=== PATIENT | male | born 1945 | race Caucasian/White ===

== ENCOUNTER 2018-12-17 09:18 | Emergency (ER) | payer MEDICARE, MEDICAID ==
[~2018-12-17] VITALS: Ht 172.7 cm; Wt 69.7 kg
--- NOTE | 2018-12-17 09:34 | NUR ---
CONTACT WITH PT, 73 YR OLD MALE HERE WITH C/O "I GOT KIDNEY STONES, I'M IN PAIN, I GOT IN INFECTION, I'M CHECKING IT OUT" HAS BEEN IN PAIN FOR 3 YEARS. ALSO HAS NAUSEA. DENIES PROBLEMS WITH URINATING.
--- NOTE | 2018-12-17 10:03 | NUR ---
PT ABLE TO PROVIDE URINE SPECIMAN. URINE SENT TO LAB. PT UPDATED ON POC. NO NEEDS EXPRESSED AT THIS TIME.
[2018-12-17 10:22] LABS: BASOPHILS # (AUTO) 0.16 x10^3/uL (0-0.1); BASOPHILS % (AUTO) 2 % (0-1); EOSINOPHILS # (AUTO) 0.15 x10^3/uL (0-0.4); EOSINOPHILS % (AUTO) 2 % (1-7); LYMPHOCYTES # (AUTO) 2.48 x10^3/uL (1-3.4); LYMPHOCYTES % (AUTO) 29 % (22-44); MD NO; MEAN CORPUSCULAR HEMOGLOBIN 30.3 pg (27.5-34.5); MEAN CORPUSCULAR HGB CONC 33.6 g/dL (33.2-36.2); MEAN CORPUSCULAR VOLUME 90.3 fL (81-97); MONOCYTES # (AUTO) 0.63 x10^3/uL (0.2-0.8); MONOCYTES % (AUTO) 7 % (2-9); NEUTROPHILS # (AUTO) 5.24 x10^3/uL (1.8-6.8); NEUTROPHILS % (AUTO) 61 % (42-75); PLATELET COUNT 299 x10^3/uL (130-400); RED BLOOD COUNT 4.99 x10^6/uL (4.38-5.82); RED CELL DISTRIBUTION WIDTH 14.5 % (9.4-14.8)
[2018-12-17 10:27] LABS: ALBUMIN 3.4 g/dL (3.4-5.0); ANION GAP 5 mmol/L (5-15); CALCIUM 8.5 mg/dL (8.5-10.1); CHLORIDE 109 mmol/L (98-107); CREATININE 0.93 mg/dL (0.7-1.3)
[2018-12-17 10:28] LABS: CULTURE INDICATED? YES; MICROSCOPIC INDICATED
[2018-12-17 10:45] VITALS: BP 143/78
--- NOTE | 2018-12-17 11:22 | NUR ---
PT MOSTLY SLEEPING, AROUSES EASILY. NO NEEDS EXPRESSED AT THIS TIME. AWAITING FURTHER DISPOSITION.
[2018-12-17] MEDS ORDERED: CEFTRIAXONE 1,000 MG IM ONE (11:30)
--- NOTE | 2018-12-17 11:54 | NUR ---
PT DOZING INTERMITTENTLY, AROUSES EASILY. NO IV TO DC. REVIEWED DC INSTRUCTIONS WITH PT, UNDERSTANDING VERBALIZED. PT LEFT AMB, GAIT STEADY.
== END 2018-12-17 11:56 | disposition home or self-care (01) ==
LOC: ED 10:02
DX: N30.00 Acute cystitis without hematuria (principal); I10 Essential (primary) hypertension; I48.91 Unspecified atrial fibrillation; Z95.0 Presence of cardiac pacemaker
CPT/HCPCS: 36415; 80048; 81001; 82040; 85025; 87086; 99283

== ENCOUNTER 2019-01-09 22:01 | Emergency (ER) | payer MEDICARE, MEDICAID ==
[~2019-01-09] VITALS: Ht 172.7 cm; Wt 66.0 kg
--- NOTE | 2019-01-09 22:14 | NUR ---
PT HERE FOR CENTRAL ABD PAIN X 1 WEEK. PT HAS HX OF KIDNEY STONES BUT DENIES URINARY SYMPTOMS. PT AMBULATED TO BATHROOM TO PROVIDE UA.
[2019-01-09] MEDS ORDERED: KETOROLAC 30 MG/1 ML IM ONE (22:30)
[2019-01-09] MEDS ORDERED: ACETAMINOPHEN 500 MG TABLET PO ONE (22:30)
[2019-01-09] MEDS ORDERED: KETOROLAC 30 MG/1 ML ONE (22:38)
[2019-01-09] MEDS ORDERED: ACETAMINOPHEN 500 MG TABLET ONE (22:38)
[2019-01-09 22:51] LABS: CULTURE INDICATED? YES; MICROSCOPIC INDICATED
[2019-01-09 23:01] LABS: BASOPHILS # (AUTO) 0.07 x10^3/uL (0-0.1); BASOPHILS % (AUTO) 1 % (0-1); EOSINOPHILS # (AUTO) 0.04 x10^3/uL (0-0.4); EOSINOPHILS % (AUTO) 0 % (1-7); LYMPHOCYTES # (AUTO) 1.32 x10^3/uL (1-3.4); LYMPHOCYTES % (AUTO) 10 % (22-44); MD NO; MEAN CORPUSCULAR HEMOGLOBIN 31.1 pg (27.5-34.5); MEAN CORPUSCULAR VOLUME 91.2 fL (81-97); MEAN PLATELET VOLUME 9.6 fL (7.4-10.4); MONOCYTES # (AUTO) 0.62 x10^3/uL (0.2-0.8); MONOCYTES % (AUTO) 5 % (2-9); NEUTROPHILS # (AUTO) 10.82 x10^3/uL (1.8-6.8); NEUTROPHILS % (AUTO) 84 % (42-75); PLATELET COUNT 271 x10^3/uL (130-400); RED BLOOD COUNT 4.98 x10^6/uL (4.38-5.82); RED CELL DISTRIBUTION WIDTH 13.8 % (9.4-14.8)
[2019-01-09 23:06] LABS: ALANINE AMINOTRANSFERASE 17 U/L (12-78); ALBUMIN 3.3 g/dL (3.4-5.0); ANION GAP 5 mmol/L (5-15); CALCIUM 8.7 mg/dL (8.5-10.1); CHLORIDE 109 mmol/L (98-107); CREATININE 1.05 mg/dL (0.7-1.3)
[2019-01-09 23:09] LABS: ALKALINE PHOSPHATASE 90 U/L (45-117); BILIRUBIN,TOTAL 0.4 mg/dL (0.2-1.0); TOTAL PROTEIN 6.8 g/dL (6.4-8.2)
[2019-01-09 23:17] VITALS: BP 137/63
[2019-01-09] MEDS ORDERED: CEFDINIR 300 MG CAPSULE ONE (23:21)
--- NOTE | 2019-01-09 23:26 | NUR ---
PT SAYS PAIN IS GONE. PT MEDICATED WITH ABX. PT VERBALIZED UNDERSTANDING OF DISCHARGE AND FOLLOW UP. PT AMBULATED OUT OF ER WITH A STEADY GAIT.
[2019-01-09] MEDS ORDERED: CEFDINIR 300 MG CAPSULE PO ONE (23:30)
== END 2019-01-09 23:28 | disposition home or self-care (01) ==
LOC: ED 22:50
DX: N30.01 Acute cystitis with hematuria (principal); I10 Essential (primary) hypertension; I48.91 Unspecified atrial fibrillation; Z95.0 Presence of cardiac pacemaker
CPT/HCPCS: 36415; 80053; 81001; 83690; 85025; 87086; 96372; 99283; J1885

== ENCOUNTER 2019-02-14 13:11 | Emergency (ER) | payer MEDICARE, MEDICAID ==
[~2019-02-14] VITALS: Ht 172.7 cm; Wt 67.0 kg
[2019-02-14 13:14] VITALS: BP 174/88
== END 2019-02-14 13:34 | disposition home or self-care (01) ==
LOC: ED 13:20
DX: H66.002 Acute suppurative otitis media without spontaneous rupture of ear drum, left ear (principal); I10 Essential (primary) hypertension; I48.91 Unspecified atrial fibrillation; Z95.0 Presence of cardiac pacemaker
CPT/HCPCS: 96372; 99283

== ENCOUNTER 2019-02-18 13:38 | Emergency (ER) | payer MEDICARE, MEDICAID ==
[~2019-02-18] VITALS: Ht 172.7 cm; Wt 65.0 kg
--- NOTE | 2019-02-18 14:08 | NUR ---
FIRST CONTACT WITH PT. PT IS ALERT AND ORIENTED, BUT HAS ABNORMAL BEHAVIOR. PT ALTERNATES BETWEEN JUMPING AROUND ROOM AND THEN FALLING ASLEEP IN BED. PT IS A POOR HISTORIAN AND CANNOT PROVIDE AN ADEQUATE HX. PT DENIES DRUG AND ETOH USE. PT REFUSES TO GIVE A URINE SAMPLE, REPEATED ATTEMPTS MADE. PT ON 2 LITERS BECAUSE HIS OX SAT DROPPED TO 88 FOR A FEW SECONDS. PT OX SAT STABLE NOW, NO ACUTE DISTRESS NOTED.
[2019-02-18 14:16] LABS: BASOPHILS # (AUTO) 0.02 x10^3/uL (0-0.1); BASOPHILS % (AUTO) 0 % (0-1); EOSINOPHILS # (AUTO) 0.13 x10^3/uL (0-0.4); EOSINOPHILS % (AUTO) 2 % (1-7); LYMPHOCYTES # (AUTO) 1.73 x10^3/uL (1-3.4); LYMPHOCYTES % (AUTO) 21 % (22-44); MD NO; MEAN CORPUSCULAR HEMOGLOBIN 31.3 pg (27.5-34.5); MEAN CORPUSCULAR HGB CONC 33.2 g/dL (33.2-36.2); MEAN CORPUSCULAR VOLUME 94.3 fL (81-97); MEAN PLATELET VOLUME 9.2 fL (7.4-10.4); MONOCYTES # (AUTO) 0.55 x10^3/uL (0.2-0.8); MONOCYTES % (AUTO) 7 % (2-9); NEUTROPHILS # (AUTO) 5.91 x10^3/uL (1.8-6.8); NEUTROPHILS % (AUTO) 71 % (42-75); PLATELET COUNT 329 x10^3/uL (130-400); RED CELL DISTRIBUTION WIDTH 13.8 % (9.4-14.8)
--- NOTE | 2019-02-18 14:20 | NUR ---
URINAL AT BEDSIDE, PT INSTRUCTED TO CALL WHEN HE CAN URINATE. CALL LIGHT IN REACH.
[2019-02-18 14:25] LABS: ALANINE AMINOTRANSFERASE 17 U/L (12-78); ALBUMIN 3.7 g/dL (3.4-5.0); ANION GAP 7 mmol/L (5-15); CALCIUM 9.6 mg/dL (8.5-10.1); CHLORIDE 105 mmol/L (98-107); CREATININE 1.07 mg/dL (0.7-1.3)
[2019-02-18 14:27] LABS: ALKALINE PHOSPHATASE 109 U/L (45-117); BILIRUBIN,TOTAL 0.6 mg/dL (0.2-1.0); TOTAL PROTEIN 7.5 g/dL (6.4-8.2)
[2019-02-18 15:27] LABS: MICROSCOPIC INDICATED
[2019-02-18 15:28] LABS: CULTURE INDICATED? YES
--- NOTE | 2019-02-18 15:30 | NUR ---
PT REFUSED TO COOPERATE WITH COMPLETION OF MED REC
[2019-02-18 15:36] VITALS: BP 156/83
--- NOTE | 2019-02-18 15:42 | NUR ---
PT ALERT AND ORIENTED AND STEADY ON FEET. VSS. NO ACUTE SIGNS OF DISTRESS. DC INSTRUCTIONS EXPLAINED TO PT AND PT VERBALIZED UNDERSTANDING. PT LEFT BY HIMSELF AND STATES THAT "WE ARE FUCKING WORTHLESS".
== END 2019-02-18 15:46 | disposition home or self-care (01) ==
LOC: ED 15:40
DX: R10.84 Generalized abdominal pain (principal); H92.02 Otalgia, left ear; Z95.0 Presence of cardiac pacemaker; I48.91 Unspecified atrial fibrillation; F17.200 Nicotine dependence, unspecified, uncomplicated; I10 Essential (primary) hypertension; Z59.0 Homelessness
CPT/HCPCS: 36415; 80053; 81001; 83690; 85025; 87086; 99283

== ENCOUNTER 2019-03-25 11:32 | Emergency (ER) | payer MEDICARE, MEDICAID ==
[~2019-03-25] VITALS: Ht 172.7 cm; Wt 66.0 kg
[2019-03-25 11:49] VITALS: BP 169/91
== END 2019-03-25 12:36 | disposition home or self-care (01) ==
LOC: ED 12:28
DX: B86 Scabies (principal); I10 Essential (primary) hypertension; I48.91 Unspecified atrial fibrillation; F17.200 Nicotine dependence, unspecified, uncomplicated; Z95.0 Presence of cardiac pacemaker
CPT/HCPCS: 99283

== ENCOUNTER 2019-10-16 10:09 | Emergency (ER) | payer MEDICARE, MEDICAID ==
[~2019-10-16] VITALS: Ht 172.7 cm; Wt 67.9 kg
[2019-10-16] MEDS ORDERED: KETOROLAC 30 MG/1 ML IM ONE (11:00)
[2019-10-16] MEDS ORDERED: KETOROLAC 30 MG/1 ML ONE (11:10)
[2019-10-16 11:17] LABS: MEAN CORPUSCULAR HEMOGLOBIN 30.7 pg (27.5-34.5); MEAN PLATELET VOLUME 9.3 fL (7.4-10.4); PLATELET COUNT 281 x10^3/uL (130-400); RED BLOOD COUNT 4.79 x10^6/uL (4.38-5.82); RED CELL DISTRIBUTION WIDTH 13.3 % (9.4-14.8)
--- NOTE | 2019-10-16 11:19 | NUR ---
PT STATES HE CAME TO ER TO FIND RESULTS OF TESTS DONE DURING THIS WEEK'S ADMISSION HE LEFT AMA SO HIS MOTOR HOME WAS NOT TOWED. PT ADDITIONALLY STATES HE NEEDS AN ANTIBIOTIC BECAUSE HE HAS BLOOD IN HIS URINE. PT DECLINES CT STATING HE HAS HAD 4 OF THEM AND DOES NOT WANT ADDITIONAL RADIATION. PT MEDICATED FOR PAIN AND GIVEN A URINAL FOR A SAMPLE.
[2019-10-16 11:23] LABS: ALANINE AMINOTRANSFERASE 47 U/L (12-78); ALBUMIN 3.2 g/dL (3.4-5.0); ANION GAP 4 mmol/L (5-15); CALCIUM 9.1 mg/dL (8.5-10.1); CHLORIDE 108 mmol/L (98-107); CREATININE 0.98 mg/dL (0.7-1.3)
[2019-10-16 11:25] LABS: ALKALINE PHOSPHATASE 99 U/L (45-117); BILIRUBIN,TOTAL 0.4 mg/dL (0.2-1.0); TOTAL PROTEIN 7.2 g/dL (6.4-8.2)
[2019-10-16 11:50] LABS: BASOPHILS # (AUTO) 0.06 x10^3/uL (0-0.1); BASOPHILS % (AUTO) 1 % (0-1); EOSINOPHILS # (AUTO) 0.24 x10^3/uL (0-0.4); EOSINOPHILS % (AUTO) 3 % (1-7); LYMPHOCYTES # (AUTO) 1.63 x10^3/uL (1-3.4); LYMPHOCYTES % (AUTO) 21 % (22-44); MD SCAN; MONOCYTES # (AUTO) 0.57 x10^3/uL (0.2-0.8); MONOCYTES % (AUTO) 7 % (2-9); NEUTROPHILS # (AUTO) 5.36 x10^3/uL (1.8-6.8); NEUTROPHILS % (AUTO) 68 % (42-75)
[2019-10-16 11:54] LABS: MICROSCOPIC AUTO
[2019-10-16 11:55] LABS: CULTURE INDICATED? YES
--- NOTE | 2019-10-16 11:55 | NUR ---
OBTAINED URINE SAMPLE. PT STATES PAIN GONE SINCE MEDICATED FOR SAME
--- NOTE | 2019-10-16 12:08 | NUR ---
OFF FLOOR TO CT
[2019-10-16] MEDS ORDERED: CEFTRIAXONE 1,000 MG IM ONE (12:30)
[2019-10-16 12:53] VITALS: BP 149/77
--- NOTE | 2019-10-16 12:53 | NUR ---
RE-EVALUATING PT. TO BE DISCHARGED. PROVIDED COFFEE AND GETTING DRESSED.
[2019-10-16] MEDS ORDERED: LIDOCAINE-MPF 1%, 2ML ONE (12:55)
[2019-10-16] MEDS ORDERED: CEFTRIAXONE 1,000 MG ONE (12:56)
== END 2019-10-16 13:27 | disposition home or self-care (01) ==
LOC: ED 12:34
DX: N30.00 Acute cystitis without hematuria (principal); I10 Essential (primary) hypertension; Z95.0 Presence of cardiac pacemaker
CPT/HCPCS: 36415; 74176; 80053; 81001; 83690; 85025; 87086; 96372; 99284; J0696; J1885

== ENCOUNTER 2019-11-12 05:40 | Emergency (ER) | payer MEDICARE, MEDICAID ==
[~2019-11-12] VITALS: Ht 172.7 cm; Wt 68.1 kg
--- NOTE | 2019-11-12 05:56 | NUR ---
PT TO ED WITH C/O "06/10 KIDNEY PAIN" PT POINTS TO LOWER ABDOMEN. PT ROCKING BACK AND FORTH AND STATING "I HAVE PAIN, I NEED PAIN MEDS" PT DENIES ANY OTHER C/O AT THIS TIME.
--- NOTE | 2019-11-12 06:25 | NUR ---
PT PROVIDED URINE SAMPLE CUP AND WATER PER MD AT THIS TIME.
--- NOTE | 2019-11-12 06:48 | NUR ---
REPORT TO VERONICA DELUNA.
[2019-11-12 07:28] LABS: CULTURE INDICATED? YES; MICROSCOPIC INDICATED
[2019-11-12 08:14] VITALS: BP 138/86
--- NOTE | 2019-11-12 08:14 | NUR ---
pt refusing ct, ermd aware
--- NOTE | 2019-11-12 10:20 | NUR ---
PT LEFT AMA, REFUSED TO SIGN PAPERWORK
== END 2019-11-12 10:22 | disposition left against medical advice (07) ==
LOC: ED 06:19
DX: N30.01 Acute cystitis with hematuria (principal); E86.0 Dehydration; I10 Essential (primary) hypertension; I48.91 Unspecified atrial fibrillation; F17.200 Nicotine dependence, unspecified, uncomplicated; Z95.0 Presence of cardiac pacemaker
CPT/HCPCS: 81001; 87086; 99283

== ENCOUNTER 2019-11-24 14:22 | Emergency (ER) | payer MEDICARE, MEDICAID ==
[~2019-11-24] VITALS: Ht 172.7 cm; Wt 72.0 kg
[2019-11-24 14:47] VITALS: BP 162/93
--- NOTE | 2019-11-24 15:02 | NUR ---
PT IRRITABLE WITH STAFF, STATES "HOW LONG IS THIS GOING TO TAKE" PT REFUSING TO CHANGE TO HOSPITAL GOWN AT THIS TIME, PT STATES HE IS HERE FOR PAIN CONTROL. ER PROVIDER MADE AWARE
== END 2019-11-24 15:24 | disposition left against medical advice (07) ==
LOC: ED 14:52
DX: R10.30 Lower abdominal pain, unspecified (principal); R06.02 Shortness of breath; Z53.21 Procedure and treatment not carried out due to patient leaving prior to being seen by health care provider

== ENCOUNTER 2020-01-29 03:29 | Inpatient (IN) | payer MEDICARE, MEDICAID ==
[~2020-01-29] VITALS: Ht 172.7 cm; Wt 70.5 kg
--- NOTE | 2020-01-29 04:29 | NUR ---
Report received from VERONICA Mendez. This RN to assume care. Awaiting lab results and urine sample from patient.
[2020-01-29 04:32] LABS: ALBUMIN 3.1 g/dL (3.4-5.0); ANION GAP 7 mmol/L (5-15); CALCIUM 9.1 mg/dL (8.5-10.1); CHLORIDE 107 mmol/L (98-107)
[2020-01-29 04:33] LABS: BASOPHILS # (AUTO) 0.05 x10^3/uL (0-0.1); BASOPHILS % (AUTO) 1 % (0-1); EOSINOPHILS % (AUTO) 1 % (1-7); LYMPHOCYTES # (AUTO) 1.28 x10^3/uL (1-3.4); LYMPHOCYTES % (AUTO) 13 % (22-44); MD NO; MEAN CORPUSCULAR HEMOGLOBIN 30.4 pg (27.5-34.5); MEAN CORPUSCULAR HGB CONC 32.6 g/dL (33.2-36.2); MEAN PLATELET VOLUME 10.4 fL (7.4-10.4); MONOCYTES # (AUTO) 0.72 x10^3/uL (0.2-0.8); MONOCYTES % (AUTO) 7 % (2-9); NEUTROPHILS # (AUTO) 7.68 x10^3/uL (1.8-6.8); NEUTROPHILS % (AUTO) 78 % (42-75); PLATELET COUNT 258 x10^3/uL (130-400); RED BLOOD COUNT 4.88 x10^6/uL (4.38-5.82); RED CELL DISTRIBUTION WIDTH 14.8 % (9.4-14.8)
[2020-01-29 04:38] LABS: ALANINE AMINOTRANSFERASE 77 U/L (12-78); ALKALINE PHOSPHATASE 119 U/L (45-117); BILIRUBIN,TOTAL 1.2 mg/dL (0.2-1.0); CREATININE 1.29 mg/dL (0.7-1.3); TOTAL PROTEIN 6.7 g/dL (6.4-8.2); TROPONIN I 0.039 ng/mL (0.000-0.045)
[2020-01-29] MEDS ORDERED: FUROSEMIDE 40 MG/4 ML IV ONE (05:00)
[2020-01-29] MEDS ORDERED: ACETAMINOPHEN 325 MG TABLET PO ONE (05:00)
[2020-01-29] MEDS ORDERED: MORPHINE SULFATE 4 MG/ML, 1ML ONE (05:39)
[2020-01-29] MEDS ORDERED: ACETAMINOPHEN 325 MG TABLET ONE (05:39)
[2020-01-29 05:49] LABS: MICROSCOPIC INDICATED
--- NOTE | 2020-01-29 05:49 | NUR ---
Patient c/o severe abd pain, requesting pain meds. Medicated patient per mar.
[2020-01-29 05:58] LABS: AMPHETAMINE SCREEN, URINE Positive (Negative); BARBITURATE SCREEN, URINE Negative (Negative); BENZODIAZEPINE SCREEN, URINE Negative (Negative); CANNABINOID SCREEN, URINE Positive (Negative); COCAINE SCREEN, URINE Negative (Negative); METHADONE SCREEN, URINE Negative (Negative); OPIATE SCREEN, URINE Negative (Negative)
[2020-01-29] MEDS ORDERED: MORPHINE SULFATE 4 MG/ML, 1ML IVPush PRN (06:00)
[2020-01-29] MEDS ORDERED: FUROSEMIDE 40 MG/4 ML ONE (06:16)
--- NOTE | 2020-01-29 06:52 | NUR ---
report received from devorah ventura.
--- NOTE | 2020-01-29 07:01 | NUR ---
pt resting in [facility]. pt's aox4. resps even and unlabored. all monitors in place. call light within reach.
--- NOTE | 2020-01-29 07:17 | NUR ---
hospitalist at bedside at this time.
--- NOTE | 2020-01-29 07:23 | NUR ---
this rn called for report but no answer.
[2020-01-29] MEDS ORDERED: ONDANSETRON 2MG/ML, 2ML IVPush PRN (07:30)
[2020-01-29] MEDS ORDERED: ONDANSETRON ODT 4 MG PO PRN (07:30)
[2020-01-29] MEDS ORDERED: hydrALAzine 20 MG/ML, 1ML IVPush PRN (07:30)
--- NOTE | 2020-01-29 07:44 | NUR ---
REPORT GIVEN TO ROHAN MARTIN. ALL QUESTIONS ANSWERED.
[2020-01-29 08:08] VITALS: BP 154/103
[2020-01-29] MEDS ORDERED: FUROSEMIDE 40 MG/4 ML IV SCH (08:30)
[2020-01-29] MEDS ORDERED: NICOTINE 21 MG/24 HR PATCH.TD24 TD SCH (08:30)
[2020-01-29] MEDS ORDERED: ENOXAPARIN 30 MG/0.3 ML SQ SCH (09:00)
[2020-01-29] MEDS ORDERED: ACETAMINOPHEN 325 MG TABLET PO PRN (09:00)
[2020-01-29] MEDS ORDERED: LIDOCAINE GEL 2%, 5ML TP ONE (10:30)
[2020-01-29] MEDS ORDERED: LIDOCAINE GEL 2%, 5ML TP PRN (10:30)
== END 2020-01-29 11:18 | disposition left against medical advice (07) | DRG 291 ==
LOC: ED 04:10 → EDIP 05:06 → 5SO 08:02
PROVIDERS: ADMIT Family Medicine; ATTEND Family Medicine
DX: I11.0 Hypertensive heart disease with heart failure (principal); J96.01 Acute respiratory failure with hypoxia; I48.91 Unspecified atrial fibrillation; F17.210 Nicotine dependence, cigarettes, uncomplicated; I50.23 Acute on chronic systolic (congestive) heart failure; I25.5 Ischemic cardiomyopathy; G89.29 Other chronic pain; M54.9 Dorsalgia, unspecified; N20.0 Calculus of kidney; K57.90 Diverticulosis of intestine, part unspecified, without perforation or abscess without bleeding; F15.10 Other stimulant abuse, uncomplicated; I45.9 Conduction disorder, unspecified; Z53.29 Procedure and treatment not carried out because of patient's decision for other reasons; Z59.0 Homelessness; Z91.19 Patient's noncompliance with other medical treatment and regimen; Z95.0 Presence of cardiac pacemaker; Z63.8 Other specified problems related to primary support group; Z87.440 Personal history of urinary (tract) infections
CPT/HCPCS: 36415; 71045; 76705; 76770; 80053; 80307; 81001; 83880; 84484; 85025; 87086; 93005; 96374; 96375; G0378; J1940; J2270

== ENCOUNTER 2020-03-04 04:39 | Emergency (ER) | payer MEDICARE, MEDICAID ==
[~2020-03-04] VITALS: Ht 172.7 cm; Wt 61.9 kg
[~2020-03-04 04:39] MED LIST: CARV3.122 PO; FINA5TAB4 PO; TAMS-11 PO
--- NOTE | 2020-03-04 04:58 | NUR ---
THIS IS A 74Y M THAT WAS RECENTLY D/C FROM HOSPITAL. PT HAD A RASMUSSEN IN PLACE UNTIL YESTERDAY AND HAS NOT BEEN ABLE TO VOID SINCE. PT DENIES FEVER CHILLS COUGH SOB ONLY COMPLAINT IS THAT HE IS UNABLE TO PEE. BLADDER SCAN COMPLETE READ >999ML. ERP TO BE UPDATED.
--- NOTE | 2020-03-04 05:01 | NUR ---
ERP AT BEDSIDE
[2020-03-04] MEDS ORDERED: PHENAZOPYRIDINE 200 MG TABLET ONE (05:28)
--- NOTE | 2020-03-04 05:29 | NUR ---
PT MEDICATED PER MAR
[2020-03-04] MEDS ORDERED: PHENAZOPYRIDINE 200 MG TABLET PO ONE (05:30)
--- NOTE | 2020-03-04 05:32 | NUR ---
PT ROCKING ON GURNEY ON HANDS AND KNEES SMACKING REAR END AND HUMMING. PT STS HE IS IN A LOT OF PAIN AND "WILL SHIT MY PANTS SOON" PT DIRECTED TO RESTROOM, AMB WITH STEADY GAIT NO ASSIST
[2020-03-04 05:34] LABS: MICROSCOPIC AUTO
[2020-03-04 05:40] LABS: ANION GAP 3 mmol/L (5-15); CALCIUM 9.7 mg/dL (8.5-10.1); CHLORIDE 105 mmol/L (98-107); CREATININE 1.44 mg/dL (0.7-1.3)
--- NOTE | 2020-03-04 06:02 | NUR ---
PT PROVIDED WITH LEG BAG PER
[2020-03-04 06:18] VITALS: BP 126/84
== END 2020-03-04 06:30 | disposition home or self-care (01) ==
LOC: ED 05:43
DX: N40.1 Benign prostatic hyperplasia with lower urinary tract symptoms (principal); R33.8 Other retention of urine; I48.91 Unspecified atrial fibrillation
CPT/HCPCS: 36415; 51702; 80048; 81001; 87086; 99284

== ENCOUNTER 2020-03-06 15:45 | Emergency (ER) | payer MEDICARE, MEDICAID ==
[~2020-03-06] VITALS: Ht 172.7 cm; Wt 63.7 kg
[2020-03-06 16:02] VITALS: BP 137/81
--- NOTE | 2020-03-06 17:22 | NUR ---
No answer from lobby.
--- NOTE | 2020-03-06 18:01 | NUR ---
No answer from lobby.
--- NOTE | 2020-03-06 18:13 | NUR ---
No answer from lobby.
== END 2020-03-06 18:15 ==
LOC: ED 18:09
DX: T83.84XA Pain due to genitourinary prosthetic devices, implants and grafts, initial encounter (principal); Z53.21 Procedure and treatment not carried out due to patient leaving prior to being seen by health care provider

== ENCOUNTER 2020-03-13 21:20 | Emergency (ER) | payer MEDICARE, MEDICAID ==
[~2020-03-13] VITALS: Ht 172.7 cm; Wt 66.5 kg
--- NOTE | 2020-03-13 22:07 | NUR ---
RASMUSSEN CATH REMOVED PER ORDER. PT TOLERATED WELL.
[2020-03-13 22:19] LABS: BASOPHILS # (AUTO) 0.22 x10^3/uL (0-0.1); BASOPHILS % (AUTO) 2 % (0-1); EOSINOPHILS # (AUTO) 0.23 x10^3/uL (0-0.4); EOSINOPHILS % (AUTO) 2 % (1-7); LYMPHOCYTES # (AUTO) 2.35 x10^3/uL (1-3.4); LYMPHOCYTES % (AUTO) 23 % (22-44); MD NO; MEAN CORPUSCULAR HGB CONC 33.2 g/dL (33.2-36.2); MEAN CORPUSCULAR VOLUME 90.4 fL (81-97); MEAN PLATELET VOLUME 9.2 fL (7.4-10.4); MONOCYTES # (AUTO) 0.65 x10^3/uL (0.2-0.8); MONOCYTES % (AUTO) 6 % (2-9); NEUTROPHILS % (AUTO) 66 % (42-75); PLATELET COUNT 303 x10^3/uL (130-400); RED BLOOD COUNT 4.57 x10^6/uL (4.38-5.82); RED CELL DISTRIBUTION WIDTH 14.6 % (9.4-14.8)
[2020-03-13 22:27] LABS: ALANINE AMINOTRANSFERASE 23 U/L (12-78); ANION GAP 5 mmol/L (5-15); CHLORIDE 108 mmol/L (98-107); CREATININE 0.98 mg/dL (0.7-1.3)
[2020-03-13 22:29] LABS: ALKALINE PHOSPHATASE 95 U/L (45-117); BILIRUBIN,TOTAL 0.4 mg/dL (0.2-1.0)
--- NOTE | 2020-03-13 22:38 | NUR ---
PT UNABLE TO VOID YET, PROVIDED MORE PO FLUIDS.
--- NOTE | 2020-03-13 23:08 | NUR ---
ENCOURAGED PT TO VOID BY STANDING AND TURNING ON FAUCET.
--- NOTE | 2020-03-14 00:05 | NUR ---
BLADDER SCAN 218ML. ENCOURAGED PT TO CONTINUE DRINKING WATER/FLUIDS TO VOID.
[2020-03-14] MEDS ORDERED: TAMSULOSIN 0.4 MG CAP.ER.24H ONE (00:08)
[2020-03-14] MEDS ORDERED: TAMSULOSIN 0.4 MG CAP.ER.24H PO ONE (00:30)
--- NOTE | 2020-03-14 01:41 | NUR ---
PT IN RESTROOM TRYING TO VOID.
--- NOTE | 2020-03-14 02:23 | NUR ---
BLADDER SCAN >600ML. PER ERP PLACE RASMUSSEN CATH.
--- NOTE | 2020-03-14 02:48 | NUR ---
RASMUSSEN CATH PLACED PER ORDER WITHOUT DIFFICULTY, PT TOLERATED WELL.
[2020-03-14 03:09] LABS: MICROSCOPIC INDICATED
[2020-03-14 03:14] VITALS: BP 141/90
[2020-03-14] MEDS ORDERED: CEFDINIR 300 MG CAPSULE PO ONE (03:30)
[2020-03-14] MEDS ORDERED: CEFDINIR 300 MG CAPSULE ONE (03:48)
== END 2020-03-14 04:12 | disposition home or self-care (01) ==
LOC: ED 21:55
DX: N30.00 Acute cystitis without hematuria (principal); I48.0 Paroxysmal atrial fibrillation; R33.8 Other retention of urine; I11.0 Hypertensive heart disease with heart failure; I50.9 Heart failure, unspecified; Z87.891 Personal history of nicotine dependence; Z95.0 Presence of cardiac pacemaker
CPT/HCPCS: 36415; 80053; 81001; 83690; 85025; 87077; 87086; 99283

== ENCOUNTER 2020-03-21 04:51 | Emergency (ER) | payer MEDICARE, MEDICAID ==
[~2020-03-21] VITALS: Ht 172.7 cm; Wt 67.6 kg
[2020-03-21 04:54] VITALS: BP 150/99
--- NOTE | 2020-03-21 04:59 | NUR ---
tech completing ekg
--- NOTE | 2020-03-21 05:15 | NUR ---
Pt arrived w/ previously placed indwelling urinary catheter.
[2020-03-21 05:58] LABS: BASOPHILS # (AUTO) 0.09 x10^3/uL (0-0.1); BASOPHILS % (AUTO) 1 % (0-1); EOSINOPHILS # (AUTO) 0.19 x10^3/uL (0-0.4); EOSINOPHILS % (AUTO) 2 % (1-7); LYMPHOCYTES # (AUTO) 1.91 x10^3/uL (1-3.4); LYMPHOCYTES % (AUTO) 21 % (22-44); MD NO; MEAN CORPUSCULAR HEMOGLOBIN 30.1 pg (27.5-34.5); MEAN CORPUSCULAR HGB CONC 33.2 g/dL (33.2-36.2); MEAN CORPUSCULAR VOLUME 90.8 fL (81-97); MEAN PLATELET VOLUME 9.1 fL (7.4-10.4); MONOCYTES # (AUTO) 0.57 x10^3/uL (0.2-0.8); MONOCYTES % (AUTO) 6 % (2-9); NEUTROPHILS # (AUTO) 6.31 x10^3/uL (1.8-6.8); NEUTROPHILS % (AUTO) 70 % (42-75); PLATELET COUNT 288 x10^3/uL (130-400); RED BLOOD COUNT 4.65 x10^6/uL (4.38-5.82); RED CELL DISTRIBUTION WIDTH 14.6 % (9.4-14.8)
[2020-03-21 06:01] LABS: ALANINE AMINOTRANSFERASE 26 U/L (12-78); ALBUMIN 3.1 g/dL (3.4-5.0); ANION GAP 5 mmol/L (5-15); CALCIUM 8.8 mg/dL (8.5-10.1); CHLORIDE 111 mmol/L (98-107)
[2020-03-21 06:06] LABS: ALKALINE PHOSPHATASE 93 U/L (45-117); BILIRUBIN,TOTAL 0.6 mg/dL (0.2-1.0); CREATININE 0.96 mg/dL (0.7-1.3); TOTAL PROTEIN 6.9 g/dL (6.4-8.2); TROPONIN I < 0.015 ng/mL (0.000-0.045)
--- NOTE | 2020-03-21 06:16 | NUR ---
Pt was observed to be standing in room holding tv remote and changing channels.
[2020-03-21] MEDS ORDERED: FUROSEMIDE 40 MG TABLET PO ONE (06:30)
== END 2020-03-21 06:51 | disposition home or self-care (01) ==
LOC: ED 06:31
DX: I11.0 Hypertensive heart disease with heart failure (principal); I50.21 Acute systolic (congestive) heart failure; R91.8 Other nonspecific abnormal finding of lung field; R94.31 Abnormal electrocardiogram [ECG] [EKG]; M79.89 Other specified soft tissue disorders; I48.91 Unspecified atrial fibrillation; F17.210 Nicotine dependence, cigarettes, uncomplicated; Z95.0 Presence of cardiac pacemaker
CPT/HCPCS: 36415; 71045; 80053; 83880; 84484; 85025; 93005; 99285

== ENCOUNTER 2020-03-29 00:58 | Emergency (ER) | payer MEDICARE, MEDICAID ==
[~2020-03-29] VITALS: Ht 172.7 cm; Wt 67.0 kg
[2020-03-29 01:49] LABS: BASOPHILS # (AUTO) 0.06 x10^3/uL (0-0.1); BASOPHILS % (AUTO) 1 % (0-1); EOSINOPHILS # (AUTO) 0.22 x10^3/uL (0-0.4); EOSINOPHILS % (AUTO) 2 % (1-7); LYMPHOCYTES # (AUTO) 2.25 x10^3/uL (1-3.4); LYMPHOCYTES % (AUTO) 25 % (22-44); MD NO; MEAN CORPUSCULAR HEMOGLOBIN 29.9 pg (27.5-34.5); MEAN CORPUSCULAR VOLUME 90.8 fL (81-97); MONOCYTES # (AUTO) 0.67 x10^3/uL (0.2-0.8); MONOCYTES % (AUTO) 7 % (2-9); NEUTROPHILS # (AUTO) 5.97 x10^3/uL (1.8-6.8); NEUTROPHILS % (AUTO) 65 % (42-75); PLATELET COUNT 267 x10^3/uL (130-400); RED BLOOD COUNT 4.67 x10^6/uL (4.38-5.82); RED CELL DISTRIBUTION WIDTH 14.6 % (9.4-14.8)
[2020-03-29 02:00] LABS: ALANINE AMINOTRANSFERASE 29 U/L (12-78); ANION GAP 5 mmol/L (5-15); CALCIUM 7.4 mg/dL (8.5-10.1); CHLORIDE 109 mmol/L (98-107); CREATININE 1.07 mg/dL (0.7-1.3)
[2020-03-29 02:04] LABS: ALKALINE PHOSPHATASE 91 U/L (45-117); BILIRUBIN,TOTAL 0.6 mg/dL (0.2-1.0); TOTAL PROTEIN 7.1 g/dL (6.4-8.2); TROPONIN I < 0.015 ng/mL (0.000-0.045)
--- NOTE | 2020-03-29 02:23 | NUR ---
BREAK RN: PT RESTING ON [place]. NO DISTRESS NOTED. ALL VITALS STABLE. AWAITING LABS AT THIS TIME
[2020-03-29 02:24] VITALS: BP 138/78
[2020-03-29] MEDS ORDERED: FUROSEMIDE 40 MG TABLET PO ONE (02:30)
[2020-03-29] MEDS ORDERED: FUROSEMIDE 40 MG TABLET ONE (02:36)
== END 2020-03-29 02:55 | disposition home or self-care (01) ==
LOC: ED 02:54
DX: I50.22 Chronic systolic (congestive) heart failure (principal); I11.0 Hypertensive heart disease with heart failure; M79.89 Other specified soft tissue disorders; R05 Cough; R06.02 Shortness of breath; I48.91 Unspecified atrial fibrillation; I49.3 Ventricular premature depolarization; Z95.0 Presence of cardiac pacemaker; Z72.9 Problem related to lifestyle, unspecified
CPT/HCPCS: 36415; 80053; 83880; 84484; 85025; 93005; 99284

== ENCOUNTER 2020-04-21 21:13 | Emergency (ER) | payer MEDICARE, MEDICAID ==
[~2020-04-21] VITALS: Ht 172.7 cm; Wt 61.5 kg
--- NOTE | 2020-04-21 22:40 | NUR ---
Old kramer removed, new kramer placed. Not enough UO for UA. Bladder scan 0ml.
--- NOTE | 2020-04-21 22:46 | NUR ---
Pt provided with PO fluids.
[2020-04-21 23:39] VITALS: BP 131/68
[2020-04-22 00:01] LABS: MICROSCOPIC INDICATED
--- NOTE | 2020-04-22 00:01 | NUR ---
REport given to VERONICA Mendez
== END 2020-04-22 01:29 | disposition home or self-care (01) ==
LOC: ED 04-22 00:26
DX: T83.098A Other mechanical complication of other urinary catheter, initial encounter (principal); I11.0 Hypertensive heart disease with heart failure; I50.9 Heart failure, unspecified; I48.91 Unspecified atrial fibrillation; Z95.0 Presence of cardiac pacemaker
CPT/HCPCS: 51702; 81001; 87086; 87106; 99284

== ENCOUNTER 2020-05-03 13:27 | Emergency (ER) | payer MEDICARE, MEDICAID ==
[~2020-05-03] VITALS: Ht 177.8 cm; Wt 62.2 kg
[2020-05-03 13:56] VITALS: BP 149/91
--- NOTE | 2020-05-03 14:50 | NUR ---
PT has c/o dry folley bag and bladder pain and distention. pt folley flushed with 900ml urine return into folley bag with in 30 min of flushing
[2020-05-03 15:12] LABS: MICROSCOPIC INDICATED
--- NOTE | 2020-05-03 16:06 | NUR ---
TASK RN: NEW LEG BAG ATTACHED TO RASMUSSEN. PT GAVE RTN DEMO ON USE Patient/Caregiver given discharge instructions and they have confirmed that they understand the instructions. Patient ambulatory with steady gait.
== END 2020-05-03 16:07 | disposition home or self-care (01) ==
LOC: ED 14:06
DX: N40.1 Benign prostatic hyperplasia with lower urinary tract symptoms (principal); R33.8 Other retention of urine; N30.00 Acute cystitis without hematuria; F15.222 Other stimulant dependence with intoxication with perceptual disturbance; I48.91 Unspecified atrial fibrillation; I11.0 Hypertensive heart disease with heart failure; I50.9 Heart failure, unspecified
CPT/HCPCS: 51700; 81001; 87086; 87106; 99284

== ENCOUNTER 2020-05-04 13:14 | Emergency (ER) | payer MEDICARE, MEDICAID ==
[~2020-05-04] VITALS: Ht 172.7 cm; Wt 61.6 kg
[2020-05-04 13:18] VITALS: BP 138/88
[2020-05-04] MEDS ORDERED: PHENAZOPYRIDINE 200 MG TABLET ONE (13:50)
--- NOTE | 2020-05-04 13:54 | NUR ---
bladder scan of 25ml medicated per emar for bladder cramping
[2020-05-04] MEDS ORDERED: PHENAZOPYRIDINE 200 MG TABLET PO ONE (14:00)
--- NOTE | 2020-05-04 14:25 | NUR ---
RASMUSSEN CLEANED WITH DESIGNATED WIPES. NEW STAT LOCK APPLIED IN CORRECT MANNER REVIEWED HOW TO SWITCH BETWEEN LEG BAG ANF URIMETER ([id number] HIM WITH NEW SUPPLIES) ALSO REVIEWD MEDICATION PLAN AND IMPORTANCE OF UROLOGY F/U
[2020-05-04] MEDS ORDERED: ONDANSETRON ODT 4 MG ONE (14:35)
[2020-05-04] MEDS ORDERED: ONDANSETRON ODT 4 MG PO ONE (15:00)
== END 2020-05-04 14:42 | disposition home or self-care (01) ==
LOC: ED 13:46
DX: N30.00 Acute cystitis without hematuria (principal); R33.9 Retention of urine, unspecified; I10 Essential (primary) hypertension; I25.2 Old myocardial infarction; I11.0 Hypertensive heart disease with heart failure; I50.9 Heart failure, unspecified; F17.200 Nicotine dependence, unspecified, uncomplicated; Z95.0 Presence of cardiac pacemaker
CPT/HCPCS: 99284; Q0162

== ENCOUNTER 2020-05-14 21:08 | Emergency (ER) | payer MEDICARE, MEDICAID ==
[~2020-05-14] VITALS: Ht 172.7 cm; Wt 61.4 kg
[2020-05-14 21:17] VITALS: BP 114/68
== END 2020-05-14 22:07 | disposition home or self-care (01) ==
LOC: ED 21:20
DX: Z46.6 Encounter for fitting and adjustment of urinary device (principal); F17.210 Nicotine dependence, cigarettes, uncomplicated; Z72.9 Problem related to lifestyle, unspecified; I11.0 Hypertensive heart disease with heart failure; I50.9 Heart failure, unspecified; I48.91 Unspecified atrial fibrillation; Z95.0 Presence of cardiac pacemaker
CPT/HCPCS: 99281; 99406

== ENCOUNTER 2020-05-17 17:58 | Emergency (ER) | payer MEDICARE, MEDICAID ==
[~2020-05-17] VITALS: Ht 170.2 cm; Wt 70.0 kg
--- NOTE | 2020-05-17 18:19 | NUR ---
PER PT, CURRENT RASMUSSEN CATHETER HAS BEEN IN PLACE FOR APPROX 3 MONTHS. PT HAS NOT FOLLOWED UP WITH UROLOGY, CITES SEVERAL PROBLEMS WITH GETTING AND KEEPING APPT. PT REPORTS OF URINARY RETENTION WITH CATHETER NOT DRAINING SINCE YESTERDAY. OLD CATHETER REMOVED, NOTED YELLOW SEDIMENT COATING CATHETER AND TIP. NEW RASMUSSEN PLACED WITH IMMEDIATE 400CC DARK YELLOW URINE OUTPUT. PT STATES ABD PAIN RELIEVED. LAB IN TO DRAW. CALL LIGHT WITHIN REACH.
[2020-05-17 18:32] LABS: BASOPHILS # (AUTO) 0.13 x10^3/uL (0-0.1); BASOPHILS % (AUTO) 2 % (0-1); EOSINOPHILS # (AUTO) 0.14 x10^3/uL (0-0.4); EOSINOPHILS % (AUTO) 2 % (1-7); LYMPHOCYTES # (AUTO) 1.21 x10^3/uL (1-3.4); LYMPHOCYTES % (AUTO) 16 % (22-44); MD NO; MEAN CORPUSCULAR HEMOGLOBIN 30.3 pg (27.5-34.5); MEAN CORPUSCULAR HGB CONC 33.2 g/dL (33.2-36.2); MEAN CORPUSCULAR VOLUME 91.4 fL (81-97); MEAN PLATELET VOLUME 8.9 fL (7.4-10.4); MONOCYTES % (AUTO) 3 % (2-9); NEUTROPHILS # (AUTO) 5.97 x10^3/uL (1.8-6.8); NEUTROPHILS % (AUTO) 78 % (42-75); PLATELET COUNT 331 x10^3/uL (130-400); RED BLOOD COUNT 4.71 x10^6/uL (4.38-5.82); RED CELL DISTRIBUTION WIDTH 14.4 % (9.4-14.8)
[2020-05-17 18:37] LABS: ALBUMIN 3.3 g/dL (3.4-5.0); ANION GAP 4 mmol/L (5-15); CALCIUM 9.4 mg/dL (8.5-10.1); CHLORIDE 109 mmol/L (98-107)
--- NOTE | 2020-05-17 19:40 | NUR ---
1100 CC IN RASMUSSEN BAG. PT STATES PAIN IS GONE. ALL RESULTS BACK, PT FOR RECHECK.
--- NOTE | 2020-05-17 19:49 | NUR ---
REPORT TO ASHOK MARTIN, TRANSFER OF CARE AT THIS TIME.
--- NOTE | 2020-05-17 19:55 | NUR ---
REPORT FROM JAZMIN MARTIN. PT TO BE ER D/C.
[2020-05-17 20:14] VITALS: BP 130/72
--- NOTE | 2020-05-17 20:25 | NUR ---
PATIENT GIVEN LEG BAG X 2 TO IMPROVE PATIENT OUTCOMES AT HOME. PATIENT VERBALIZED UNDERSTANDING OF SELF CARE AND FOLLOW UP CARE WITH UROLOGY. PATIENT DENIES ANY COMPLICATIONS AT THIS TIME, DENIES ANY QUESTIONS REGARDING HIS CARE. PATIENT AMBULATORY WITH FRIEND TO DISCHARGE DESK WITHOUT COMPLICATIONS.
== END 2020-05-17 20:27 | disposition home or self-care (01) ==
LOC: ED 19:41
DX: R33.9 Retention of urine, unspecified (principal); R31.9 Hematuria, unspecified
CPT/HCPCS: 36415; 51702; 76770; 80048; 82040; 85025; 99284

== ENCOUNTER 2020-05-24 11:42 | Emergency (ER) | payer MEDICARE, MEDICAID ==
[~2020-05-24] VITALS: Ht 172.7 cm; Wt 61.9 kg
[2020-05-24] MEDS ORDERED: LIDOCAINE 2%,20 ML JEL.PF.APP MM ONE (12:30)
--- NOTE | 2020-05-24 13:09 | NUR ---
Old kramer removed, not able to urinate despite urge
--- NOTE | 2020-05-24 13:38 | NUR ---
Pts kramer removed, replaced with new kramer. Good urine output, bergundy in color, UA sent. Pt states relief from pain.
[2020-05-24 13:50] LABS: MICROSCOPIC INDICATED
[2020-05-24 14:03] VITALS: BP 144/77
--- NOTE | 2020-05-24 14:04 | NUR ---
ERP at bedside, to be DC'd
== END 2020-05-24 14:26 | disposition home or self-care (01) ==
LOC: ED 13:40
DX: N30.00 Acute cystitis without hematuria (principal); I11.0 Hypertensive heart disease with heart failure; I50.9 Heart failure, unspecified; I48.91 Unspecified atrial fibrillation; Z95.0 Presence of cardiac pacemaker
CPT/HCPCS: 51702; 81001; 87086; 87106; 99284

== ENCOUNTER 2020-08-25 00:04 | Emergency (ER) | payer MEDICARE, MEDICAID ==
[~2020-08-25] VITALS: Ht 172.7 cm; Wt 64.0 kg
[2020-08-25 01:09] VITALS: BP 127/75
== END 2020-08-25 01:12 | disposition home or self-care (01) ==
LOC: ED 00:43
DX: T83.038A Leakage of other urinary catheter, initial encounter (principal); R33.9 Retention of urine, unspecified; I11.0 Hypertensive heart disease with heart failure; I50.9 Heart failure, unspecified; I48.91 Unspecified atrial fibrillation; Z95.0 Presence of cardiac pacemaker
CPT/HCPCS: 51702; 99284

== ENCOUNTER 2020-09-23 07:33 | Inpatient (IN) | payer MEDICARE, MEDICAID ==
[~2020-09-23] VITALS: Ht 172.7 cm; Wt 65.4 kg
[2020-09-23 08:25] LABS: BASOPHILS % (AUTO) 1 % (0-1); EOSINOPHILS % (AUTO) 1 % (1-7); LYMPHOCYTES % (AUTO) 13 % (22-44); MEAN CORPUSCULAR HEMOGLOBIN 29.7 pg (27.5-34.5); MEAN CORPUSCULAR HGB CONC 33.7 g/dL (33.2-36.2); MEAN PLATELET VOLUME 8.3 fL (7.4-10.4); MONOCYTES % (AUTO) 7 % (2-9); NEUTROPHILS % (AUTO) 79 % (42-75); PLATELET COUNT 344 x10^3/uL (130-400); RED BLOOD COUNT 4.68 x10^6/uL (4.38-5.82); RED CELL DISTRIBUTION WIDTH 15.2 % (9.4-14.8)
[2020-09-23 08:29] LABS: MD NO
[2020-09-23 08:33] LABS: ALBUMIN 3.2 g/dL (3.4-5.0); ANION GAP 7 mmol/L (5-15); CALCIUM 8.9 mg/dL (8.5-10.1); CHLORIDE 108 mmol/L (98-107); CREATININE 1.07 mg/dL (0.7-1.3)
[2020-09-23 08:44] LABS: MICROSCOPIC AUTO
[2020-09-23] MEDS ORDERED: CEFTRIAXONE 1,000 MG IM ONE (09:30)
[2020-09-23] MEDS ORDERED: LIDOCAINE-MPF 1%, 2ML ONE (09:58)
[2020-09-23] MEDS ORDERED: CEFTRIAXONE 1,000 MG ONE (09:58)
--- NOTE | 2020-09-23 10:10 | NUR ---
PT BACK FROM CT, MEDICATED PER OCT. PT MAKING INAPPROPRIATE COMMENTS, "I DONT WANT YOU TO INJECT WITH ME WITH THAT VIRUS THATS GOING AROUND" PT EDUCATED THIS RN IS NOT INJECTING HIM WITH A PANDEMIC VIRUS AND WILL BE ADMINISTRATING AN ANTIBIOTIC PREVIOUSLY EXPLAINED. VSS, NO OTHER NEEDS
--- NOTE | 2020-09-23 12:40 | NUR ---
REPORT CALLED TO RECEIVING RN, AWAITING TRANSPORT
[2020-09-23 13:25] VITALS: BP 155/92
[2020-09-23 13:51] VITALS: BP 139/78
[2020-09-23 14:29] LABS: AMPHETAMINE SCREEN, URINE Positive (Negative); BARBITURATE SCREEN, URINE Negative (Negative); BENZODIAZEPINE SCREEN, URINE Negative (Negative); CANNABINOID SCREEN, URINE Positive (Negative); COCAINE SCREEN, URINE Negative (Negative); METHADONE SCREEN, URINE Negative (Negative); OPIATE SCREEN, URINE Negative (Negative)
[2020-09-23] MEDS ORDERED: HYDROmorphone 1 MG/ML, 1ML INJ IVPush PRN (14:30)
[2020-09-23] MEDS ORDERED: HYDROcodone/APAP 7.5-325MG/15ML UDC PO PRN (14:30)
[2020-09-23] MEDS ORDERED: FENTANYL PF 100 MCG/2ML IV PRN (14:30)
[2020-09-23] MEDS ORDERED: PROMETHAZINE 25 MG/ML, 1ML IVPush PRN (14:30)
[2020-09-23] MEDS ORDERED: LACTATED RINGERS 1,000 ML IV SCH (14:30)
[2020-09-23] MEDS ORDERED: hydrALAzine 20 MG/ML, 1ML IVPush PRN (14:30)
[2020-09-23] MEDS ORDERED: MEPERIDINE/PF 25MG/0.5ML IVPush PRN (14:30)
[2020-09-23] MEDS ORDERED: OXYcodone 5 MG/5 ML ORAL.SOL UDC PO PRN (14:30)
[2020-09-23] MEDS ORDERED: ONDANSETRON 2MG/ML, 2ML IVPush PRN (14:30)
[2020-09-23 19:33] VITALS: BP 156/89
[2020-09-23] MEDS: CARVEDILOL 3.125 MG TABLET PO SCH (20:48)
[2020-09-23] MEDS: OXYcodone IR 5MG TABLET PO PRN (20:48)
[2020-09-24 01:20] VITALS: BP 152/83
[2020-09-24 05:54] LABS: BASOPHILS % (AUTO) 1 % (0-1); EOSINOPHILS % (AUTO) 2 % (1-7); LYMPHOCYTES % (AUTO) 18 % (22-44); MEAN CORPUSCULAR HEMOGLOBIN 29.9 pg (27.5-34.5); MEAN CORPUSCULAR HGB CONC 34.1 g/dL (33.2-36.2); MEAN PLATELET VOLUME 8.8 fL (7.4-10.4); MONOCYTES % (AUTO) 7 % (2-9); NEUTROPHILS % (AUTO) 73 % (42-75); PLATELET COUNT 332 x10^3/uL (130-400); RED CELL DISTRIBUTION WIDTH 15.3 % (9.4-14.8)
[2020-09-24 06:00] LABS: CHLORIDE 110 mmol/L (98-107)
[2020-09-24 06:04] LABS: ANION GAP 4 mmol/L (5-15); CALCIUM 8.7 mg/dL (8.5-10.1); CREATININE 0.88 mg/dL (0.7-1.3)
[2020-09-24 06:19] LABS: MD NO
[2020-09-24] MEDS: ASPIRIN 81 MG TABLET EC PO SCH (06:31)
[2020-09-24] MEDS ORDERED: LISINOPRIL 5 MG TABLET PO SCH (09:00)
[2020-09-24] MEDS: SENNA/DOCUSATE TABLET PO SCH (09:00)
[2020-09-24 09:14] VITALS: BP 151/88
[2020-09-24] MEDS: CARVEDILOL 3.125 MG TABLET PO SCH ×2 (09:17→20:31)
[2020-09-24] MEDS: TAMSULOSIN 0.4 MG CAP.ER.24H PO SCH (09:17)
[2020-09-24] MEDS: FINASTERIDE 5 MG TABLET PO SCH (09:17)
[2020-09-24] MEDS ORDERED: MIDAZOLAM 1 MG/ML, 2ML ONE (10:04)
[2020-09-24] MEDS ORDERED: FENTANYL PF 100 MCG/2ML ONE (10:04)
[2020-09-24] MEDS ORDERED: SUCCINYLCHOLINE 20 MG/ML, 10ML ONE (10:12)
[2020-09-24] MEDS ORDERED: ROCURONIUM 10MG/ML,5ML ONE (10:12)
[2020-09-24] MEDS ORDERED: PROPOFOL 10 MG/ML, 20ML ONE (10:12)
[2020-09-24] MEDS ORDERED: ONDANSETRON 2MG/ML, 2ML ONE (10:13)
[2020-09-24] MEDS ORDERED: DEXAMETHASONE 4 MG/ML, 5ML ONE (10:13)
[2020-09-24] MEDS ORDERED: MIDAZOLAM 1 MG/ML, 2ML IV PRN (11:00)
[2020-09-24] MEDS ORDERED: ONDANSETRON 2MG/ML, 2ML IVPush PRN (11:00)
[2020-09-24] MEDS ORDERED: OXYcodone 5 MG/5 ML ORAL.SOL UDC PO PRN (11:00)
[2020-09-24] MEDS ORDERED: ALBUTEROL SULFATE 2.5 MG/3 ML NPPB PRN (11:00)
[2020-09-24] MEDS ORDERED: FENTANYL PF 100 MCG/2ML IV PRN (11:00)
[2020-09-24] MEDS ORDERED: DIPHENHYDRAMINE 50 MG/ML, 1ML IVPush PRN (11:00)
[2020-09-24] MEDS ORDERED: DIAZEPAM 5 MG/ML, 2ML IVPush PRN (11:00)
[2020-09-24] MEDS ORDERED: EPHEDRINE 50 MG/ML, 1ML IVPush PRN (11:00)
[2020-09-24] MEDS ORDERED: PROMETHAZINE 25 MG/ML, 1ML IVPush PRN (11:00)
[2020-09-24] MEDS ORDERED: LABETALOL 5MG/ML, 20ML IV PRN (11:00)
[2020-09-24] MEDS ORDERED: MEPERIDINE/PF 25MG/0.5ML IVPush PRN (11:00)
[2020-09-24] MEDS ORDERED: ACETAMINOPHEN 325 MG TABLET PO PRN (11:00)
[2020-09-24] MEDS ORDERED: HYDROmorphone 1 MG/ML, 1ML INJ IVPush PRN (11:00)
[2020-09-24] MEDS ORDERED: hydrALAzine 20 MG/ML, 1ML IV PRN (11:00)
[2020-09-24] MEDS ORDERED: PROMETHAZINE 12.5 MG SUPP PR PRN (11:00)
[2020-09-24 13:27] VITALS: BP 135/76
[2020-09-24 20:28] VITALS: BP 130/61
[2020-09-24] MEDS: LISINOPRIL 5 MG TABLET PO SCH (20:30)
[2020-09-24] MEDS: OXYcodone IR 5MG TABLET PO PRN (20:30)
[2020-09-25 00:57] VITALS: BP 111/58
[2020-09-25] MEDS: ASPIRIN 81 MG TABLET EC PO SCH (05:50)
[2020-09-25 07:43] VITALS: BP 130/72
[2020-09-25] MEDS ORDERED: CEFTRIAXONE PMX 1GM/50ML 50 ML IV SCH (08:00)
[2020-09-25] MEDS: CARVEDILOL 3.125 MG TABLET PO SCH ×2 (09:24→20:30)
[2020-09-25] MEDS: SENNA/DOCUSATE TABLET PO SCH (09:24)
[2020-09-25] MEDS: FINASTERIDE 5 MG TABLET PO SCH (09:24)
[2020-09-25] MEDS: LISINOPRIL 5 MG TABLET PO SCH ×2 (09:25→20:30)
[2020-09-25] MEDS: TAMSULOSIN 0.4 MG CAP.ER.24H PO SCH (09:25)
[2020-09-25 13:30] VITALS: BP 132/73
[2020-09-25 20:21] VITALS: BP 155/95
[2020-09-25] MEDS: LORazepam 0.5MG TABLET PO PRN (21:42)
[2020-09-25] MEDS: OXYcodone IR 5MG TABLET PO PRN (22:31)
[2020-09-26] MEDS: OXYcodone IR 5MG TABLET PO PRN ×3 (03:09→20:57)
[2020-09-26 03:10] VITALS: BP 147/84
[2020-09-26 05:27] LABS: BASOPHILS % (AUTO) 1 % (0-1); EOSINOPHILS % (AUTO) 1 % (1-7); LYMPHOCYTES % (AUTO) 19 % (22-44); MEAN CORPUSCULAR HGB CONC 33.1 g/dL (33.2-36.2); MEAN PLATELET VOLUME 8.9 fL (7.4-10.4); MONOCYTES % (AUTO) 7 % (2-9); NEUTROPHILS % (AUTO) 72 % (42-75); PLATELET COUNT 331 x10^3/uL (130-400); RED BLOOD COUNT 4.57 x10^6/uL (4.38-5.82)
[2020-09-26 05:31] LABS: MD NO
[2020-09-26 05:35] LABS: ANION GAP 5 mmol/L (5-15); CALCIUM 8.8 mg/dL (8.5-10.1); CHLORIDE 106 mmol/L (98-107); CREATININE 0.97 mg/dL (0.7-1.3)
[2020-09-26] MEDS: ASPIRIN 81 MG TABLET EC PO SCH (05:42)
[2020-09-26 07:32] VITALS: BP 153/91
[2020-09-26] MEDS: SENNA/DOCUSATE TABLET PO SCH (07:54)
[2020-09-26] MEDS: CARVEDILOL 3.125 MG TABLET PO SCH ×2 (07:54→20:58)
[2020-09-26] MEDS: LISINOPRIL 5 MG TABLET PO SCH ×2 (07:54→20:58)
[2020-09-26] MEDS: TAMSULOSIN 0.4 MG CAP.ER.24H PO SCH (07:54)
[2020-09-26] MEDS: FINASTERIDE 5 MG TABLET PO SCH (07:54)
[2020-09-26] MEDS ORDERED: CEFTRIAXONE PMX 1GM/50ML 50 ML IV SCH (08:00)
[2020-09-26 13:02] VITALS: BP 132/79
[2020-09-26] MEDS ORDERED: CHLORHEXIDINE 15 ML UDC MM STA (13:29)
[2020-09-26] MEDS ORDERED: LABETALOL 5MG/ML, 20ML IV PRN (14:30)
[2020-09-26] MEDS ORDERED: OXYcodone 5 MG/5 ML ORAL.SOL UDC PO PRN (14:30)
[2020-09-26] MEDS ORDERED: ONDANSETRON 2MG/ML, 2ML IVPush PRN (14:30)
[2020-09-26] MEDS ORDERED: hydrALAzine 20 MG/ML, 1ML IV PRN (14:30)
[2020-09-26] MEDS ORDERED: MEPERIDINE/PF 25MG/0.5ML IVPush PRN (14:30)
[2020-09-26] MEDS ORDERED: FENTANYL PF 100 MCG/2ML IV PRN (14:30)
[2020-09-26] MEDS ORDERED: morphine SULFATE 10 MG/ML, 1ML IVPush PRN (14:30)
[2020-09-26] MEDS ORDERED: HYDROmorphone 1 MG/ML, 1ML INJ IVPush PRN (14:30)
[2020-09-26] MEDS ORDERED: FENTANYL PF 250 MCG/5ML ONE (14:36)
[2020-09-26] MEDS ORDERED: PROPOFOL 10 MG/ML, 20ML ONE (14:37)
[2020-09-26] MEDS ORDERED: GLYCOPYRROLATE 0.2MG/1ML, 5ML ONE (14:37)
[2020-09-26] MEDS ORDERED: CEFAZOLIN 1,000 MG ONE (14:37)
[2020-09-26] MEDS ORDERED: ROCURONIUM 10MG/ML,5ML ONE (14:37)
[2020-09-26] MEDS ORDERED: SUGAMMADEX 200 MG/2 ML IVPush ONE (14:37)
[2020-09-26] MEDS ORDERED: NEOSTIGMINE 1 MG/ML, 10ML ONE (14:37)
[2020-09-26] MEDS ORDERED: GENTAMICIN 80 MG/2 ML ONE ×2 (15:07→15:08)
[2020-09-26] MEDS ORDERED: AMPICILLIN 1 GM ONE (15:09)
[2020-09-26] MEDS ORDERED: AMPICILLIN 2 GM ONE (15:09)
[2020-09-26] MEDS ORDERED: FENTANYL PF 100 MCG/2ML ONE (17:26)
[2020-09-26] MEDS ORDERED: ONDANSETRON 2MG/ML, 2ML ONE (18:21)
[2020-09-26] MEDS: ONDANSETRON 2MG/ML, 2ML IVPush PRN (18:23)
[2020-09-26 20:53] VITALS: BP 165/89
[2020-09-26] MEDS: ACETAMINOPHEN 325 MG TABLET PO PRN (20:57)
[2020-09-27 02:11] VITALS: BP 113/67
[2020-09-27 05:24] LABS: BASOPHILS % (AUTO) 1 % (0-1); EOSINOPHILS % (AUTO) 0 % (1-7); LYMPHOCYTES % (AUTO) 5 % (22-44); MEAN CORPUSCULAR HEMOGLOBIN 29.4 pg (27.5-34.5); MEAN CORPUSCULAR HGB CONC 33.6 g/dL (33.2-36.2); MEAN PLATELET VOLUME 8.9 fL (7.4-10.4); MONOCYTES % (AUTO) 6 % (2-9); NEUTROPHILS % (AUTO) 88 % (42-75); PLATELET COUNT 326 x10^3/uL (130-400); RED BLOOD COUNT 4.68 x10^6/uL (4.38-5.82); RED CELL DISTRIBUTION WIDTH 15.1 % (9.4-14.8)
[2020-09-27 05:36] LABS: ANION GAP 6 mmol/L (5-15); CALCIUM 8.8 mg/dL (8.5-10.1); CHLORIDE 104 mmol/L (98-107)
[2020-09-27 05:37] LABS: CREATININE 0.88 mg/dL (0.7-1.3); MD NO
[2020-09-27] MEDS: ASPIRIN 81 MG TABLET EC PO SCH (05:49)
[2020-09-27 08:02] VITALS: BP 116/66
[2020-09-27] MEDS: OXYcodone IR 5MG TABLET PO PRN ×3 (09:02→22:36)
[2020-09-27] MEDS: CARVEDILOL 3.125 MG TABLET PO SCH ×2 (09:02→21:54)
[2020-09-27] MEDS: CEPHALEXIN 500 MG CAPSULE PO SCH ×3 (09:02→21:54)
[2020-09-27] MEDS: TAMSULOSIN 0.4 MG CAP.ER.24H PO SCH (09:02)
[2020-09-27] MEDS: LISINOPRIL 5 MG TABLET PO SCH ×2 (09:03→21:54)
[2020-09-27] MEDS: FINASTERIDE 5 MG TABLET PO SCH (09:03)
[2020-09-27] MEDS: SENNA/DOCUSATE TABLET PO SCH (09:03)
[2020-09-27 13:27] VITALS: BP 126/67
[2020-09-27 21:24] VITALS: BP 129/65
[2020-09-27] MEDS: ACETAMINOPHEN 325 MG TABLET PO PRN (21:53)
[2020-09-28 02:12] VITALS: BP 122/72
[2020-09-28] MEDS: ACETAMINOPHEN 325 MG TABLET PO PRN ×2 (02:48→21:35)
[2020-09-28] MEDS: CEPHALEXIN 500 MG CAPSULE PO SCH ×4 (02:49→21:36)
[2020-09-28] MEDS: OXYcodone IR 5MG TABLET PO PRN ×5 (02:49→21:36)
[2020-09-28] MEDS: ASPIRIN 81 MG TABLET EC PO SCH (06:38)
[2020-09-28] MEDS: TAMSULOSIN 0.4 MG CAP.ER.24H PO SCH (08:51)
[2020-09-28] MEDS: LISINOPRIL 5 MG TABLET PO SCH ×2 (08:51→21:35)
[2020-09-28] MEDS: CARVEDILOL 3.125 MG TABLET PO SCH ×2 (08:51→21:34)
[2020-09-28] MEDS: SENNA/DOCUSATE TABLET PO SCH (08:51)
[2020-09-28 08:52] VITALS: BP 159/80
[2020-09-28] MEDS: FINASTERIDE 5 MG TABLET PO SCH (11:30)
[2020-09-28 15:30] VITALS: BP 122/65
[2020-09-28 19:36] VITALS: BP 124/73
[2020-09-28] MEDS: ONDANSETRON 2MG/ML, 2ML IVPush PRN (23:35)
[2020-09-28 23:56] VITALS: BP 113/67
[2020-09-29] MEDS: LORazepam 0.5MG TABLET PO PRN ×2 (00:26→23:19)
[2020-09-29] MEDS: CEPHALEXIN 500 MG CAPSULE PO SCH ×4 (03:13→21:38)
[2020-09-29] MEDS: ACETAMINOPHEN 325 MG TABLET PO PRN ×2 (03:13→21:41)
[2020-09-29] MEDS: OXYcodone IR 5MG TABLET PO PRN ×4 (03:13→21:41)
[2020-09-29 05:58] LABS: BASOPHILS % (AUTO) 0 % (0-1); EOSINOPHILS % (AUTO) 1 % (1-7); LYMPHOCYTES % (AUTO) 11 % (22-44); MEAN CORPUSCULAR HEMOGLOBIN 29.3 pg (27.5-34.5); MEAN CORPUSCULAR HGB CONC 33.5 g/dL (33.2-36.2); MEAN PLATELET VOLUME 9.2 fL (7.4-10.4); MONOCYTES % (AUTO) 9 % (2-9); NEUTROPHILS % (AUTO) 79 % (42-75); PLATELET COUNT 320 x10^3/uL (130-400); RED BLOOD COUNT 4.28 x10^6/uL (4.38-5.82); RED CELL DISTRIBUTION WIDTH 15.4 % (9.4-14.8)
[2020-09-29] MEDS: ASPIRIN 81 MG TABLET EC PO SCH (06:00)
[2020-09-29 06:05] LABS: ANION GAP 5 mmol/L (5-15); CALCIUM 8.5 mg/dL (8.5-10.1); CHLORIDE 104 mmol/L (98-107); CREATININE 0.88 mg/dL (0.7-1.3)
[2020-09-29 06:18] LABS: MD SCAN
[2020-09-29] MEDS: SENNA/DOCUSATE TABLET PO SCH (09:00)
[2020-09-29 09:27] VITALS: BP 111/75
[2020-09-29] MEDS: CARVEDILOL 3.125 MG TABLET PO SCH ×2 (09:31→21:38)
[2020-09-29] MEDS: TAMSULOSIN 0.4 MG CAP.ER.24H PO SCH (09:31)
[2020-09-29] MEDS: LISINOPRIL 5 MG TABLET PO SCH ×2 (09:31→21:40)
[2020-09-29] MEDS: FINASTERIDE 5 MG TABLET PO SCH (10:03)
[2020-09-29 12:50] VITALS: BP 89/51
[2020-09-29 21:41] VITALS: BP 112/69
[2020-09-30] MEDS: ACETAMINOPHEN 325 MG TABLET PO PRN (03:14)
[2020-09-30] MEDS: CEPHALEXIN 500 MG CAPSULE PO SCH ×3 (03:14→15:41)
[2020-09-30] MEDS: OXYcodone IR 5MG TABLET PO PRN ×4 (03:14→20:49)
[2020-09-30 03:17] VITALS: BP 102/56
[2020-09-30] MEDS: ASPIRIN 81 MG TABLET EC PO SCH (06:13)
[2020-09-30 06:30] VITALS: BP 102/60
[2020-09-30] MEDS: SENNA/DOCUSATE TABLET PO SCH (07:46)
[2020-09-30] MEDS: FINASTERIDE 5 MG TABLET PO SCH (07:49)
[2020-09-30] MEDS: LISINOPRIL 5 MG TABLET PO SCH ×2 (07:49→20:49)
[2020-09-30] MEDS: TAMSULOSIN 0.4 MG CAP.ER.24H PO SCH (07:49)
[2020-09-30] MEDS: CARVEDILOL 3.125 MG TABLET PO SCH ×2 (08:25→20:49)
[2020-09-30 12:31] VITALS: BP 109/64
[2020-09-30 20:05] VITALS: BP 128/73
[2020-09-30 20:48] VITALS: BP 126/69
[2020-09-30] MEDS: CEFAZOLIN PMX 1GM/50ML 50 ML IV SCH (20:49)
[2020-09-30] MEDS: LORazepam 0.5MG TABLET PO PRN (23:17)
[2020-10-01 00:32] VITALS: BP 131/72
[2020-10-01] MEDS: CEFAZOLIN PMX 1GM/50ML 50 ML IV SCH ×3 (05:09→21:51)
[2020-10-01] MEDS: ASPIRIN 81 MG TABLET EC PO SCH (05:32)
[2020-10-01 07:13] VITALS: BP 129/68
[2020-10-01] MEDS ORDERED: FENTANYL PF 250 MCG/5ML ONE (07:14)
[2020-10-01] MEDS ORDERED: OXYcodone 5 MG/5 ML ORAL.SOL UDC PO PRN (07:30)
[2020-10-01] MEDS ORDERED: LABETALOL 5MG/ML, 20ML IV PRN (07:30)
[2020-10-01] MEDS ORDERED: HALOPERIDOL 5 MG/ML IV PRN (07:30)
[2020-10-01] MEDS ORDERED: HYDROmorphone 1 MG/ML, 1ML INJ IVPush PRN (07:30)
[2020-10-01] MEDS ORDERED: PROMETHAZINE 25 MG/ML, 1ML IVPush PRN (07:30)
[2020-10-01] MEDS ORDERED: MEPERIDINE/PF 25MG/0.5ML IVPush PRN (07:30)
[2020-10-01] MEDS ORDERED: DIPHENHYDRAMINE 50 MG/ML, 1ML IVPush PRN (07:30)
[2020-10-01] MEDS ORDERED: hydrALAzine 20 MG/ML, 1ML IV PRN (07:30)
[2020-10-01] MEDS ORDERED: GLYCOPYRROLATE 0.2MG/1ML, 5ML ONE (08:50)
[2020-10-01] MEDS ORDERED: NEOSTIGMINE 1 MG/ML, 10ML ONE (08:50)
[2020-10-01] MEDS ORDERED: ONDANSETRON 2MG/ML, 2ML ONE (08:50)
[2020-10-01] MEDS ORDERED: PROPOFOL 10 MG/ML, 20ML ONE (08:50)
[2020-10-01] MEDS ORDERED: SUCCINYLCHOLINE 20 MG/ML, 10ML ONE (08:50)
[2020-10-01] MEDS ORDERED: CEFAZOLIN 1,000 MG ONE (08:50)
[2020-10-01] MEDS ORDERED: DEXAMETHASONE 4 MG/ML, 1ML ONE (08:50)
[2020-10-01] MEDS ORDERED: ROCURONIUM 10MG/ML,5ML ONE (08:50)
[2020-10-01] MEDS ORDERED: OXYcodone 5 MG/5 ML ORAL.SOL UDC ONE (09:10)
[2020-10-01] MEDS ORDERED: FENTANYL PF 100 MCG/2ML ONE (09:10)
[2020-10-01] MEDS: FENTANYL PF 100 MCG/2ML IV PRN ×2 (09:15→09:20)
[2020-10-01] MEDS ORDERED: PROMETHAZINE 25 MG/ML, 1ML ONE (09:26)
[2020-10-01] MEDS ORDERED: LORazepam 2 MG/ML, 1ML ONE (09:54)
[2020-10-01] MEDS: LORazepam 2 MG/ML, 1ML IVPush PRN ×2 (09:55→10:10)
[2020-10-01] MEDS ORDERED: MEPERIDINE/PF 25MG/ML,1ML ONE (10:05)
[2020-10-01] MEDS ORDERED: hydrALAzine 20 MG/ML, 1ML ONE (10:10)
[2020-10-01] MEDS: FINASTERIDE 5 MG TABLET PO SCH (10:54)
[2020-10-01] MEDS: TAMSULOSIN 0.4 MG CAP.ER.24H PO SCH (10:54)
[2020-10-01] MEDS: CARVEDILOL 3.125 MG TABLET PO SCH ×2 (10:54→19:44)
[2020-10-01] MEDS: LISINOPRIL 5 MG TABLET PO SCH ×2 (10:55→19:44)
[2020-10-01] MEDS: SENNA/DOCUSATE TABLET PO SCH (10:55)
[2020-10-01 14:01] VITALS: BP 137/77
[2020-10-01 19:42] VITALS: BP 131/73
[2020-10-01] MEDS: LORazepam 0.5MG TABLET PO PRN (19:48)
[2020-10-02 00:20] VITALS: BP 101/62
[2020-10-02 04:06] VITALS: BP 122/70
[2020-10-02 05:28] LABS: BASOPHILS % (AUTO) 1 % (0-1); EOSINOPHILS % (AUTO) 0 % (1-7); LYMPHOCYTES % (AUTO) 12 % (22-44); MEAN CORPUSCULAR HEMOGLOBIN 29.2 pg (27.5-34.5); MEAN CORPUSCULAR HGB CONC 33.6 g/dL (33.2-36.2); MEAN PLATELET VOLUME 9.1 fL (7.4-10.4); MONOCYTES % (AUTO) 7 % (2-9); NEUTROPHILS % (AUTO) 81 % (42-75); PLATELET COUNT 412 x10^3/uL (130-400); RED BLOOD COUNT 4.29 x10^6/uL (4.38-5.82); RED CELL DISTRIBUTION WIDTH 15.6 % (9.4-14.8)
[2020-10-02 05:29] LABS: ANION GAP 5 mmol/L (5-15); CALCIUM 8.4 mg/dL (8.5-10.1); CHLORIDE 104 mmol/L (98-107)
[2020-10-02 05:31] LABS: CREATININE 0.96 mg/dL (0.7-1.3)
[2020-10-02 05:47] LABS: MD NO
[2020-10-02] MEDS: CEFAZOLIN PMX 1GM/50ML 50 ML IV SCH ×2 (06:11→12:19)
[2020-10-02] MEDS: ASPIRIN 81 MG TABLET EC PO SCH (06:11)
[2020-10-02] MEDS: OXYcodone IR 5MG TABLET PO PRN (06:17)
[2020-10-02 07:46] VITALS: BP 131/70
[2020-10-02] MEDS: TAMSULOSIN 0.4 MG CAP.ER.24H PO SCH (08:32)
[2020-10-02] MEDS: CARVEDILOL 3.125 MG TABLET PO SCH (08:32)
[2020-10-02] MEDS: SENNA/DOCUSATE TABLET PO SCH (08:32)
[2020-10-02] MEDS: LISINOPRIL 5 MG TABLET PO SCH (08:32)
[2020-10-02] MEDS: FINASTERIDE 5 MG TABLET PO SCH (08:32)
[2020-10-02 09:53] LABS: MICROSCOPIC AUTO
[2020-10-02] MEDS ORDERED: LISI5TAB7 PO (12:00)
[2020-10-02] MEDS ORDERED: HYDR-1067 PO (12:09)
[2020-10-02] MEDS ORDERED: AMOX1TAB64 PO (12:15)
[2020-10-02] MEDS ORDERED: LACT1CAP35 PO (12:15)
[2020-10-02 12:32] VITALS: BP 104/58
[2020-10-02 15:55] VITALS: BP 155/76
== END 2020-10-02 16:07 | disposition home or self-care (01) | DRG 659 ==
LOC: ED 08:09 → EDIP 10:35 → 3N 11:48 → 4NE 09-26 18:51 → DCLOUNGE 10-02 16:05
PROVIDERS: ADMIT Internal Medicine Infectious Disease; ATTEND Hospitalist
PROC: 0T9B30Z Drainage of Bladder with Drainage Device, Percutaneous Approach (ICD-10-PCS; 2020-09-23)
PROC: BT1D1ZZ Fluoroscopy of Right Kidney, Ureter and Bladder using Low Osmolar Contrast (ICD-10-PCS; 2020-09-24)
PROC: 0T768DZ Dilation of Right Ureter with Intraluminal Device, Via Natural or Artificial Opening Endoscopic (ICD-10-PCS; principal; 2020-09-24 10:30)
PROC: 0TC68ZZ Extirpation of Matter from Right Ureter, Via Natural or Artificial Opening Endoscopic (ICD-10-PCS; 2020-09-26)
PROC: 0VB08ZZ Excision of Prostate, Via Natural or Artificial Opening Endoscopic (ICD-10-PCS; 2020-10-01)
DX: N13.6 Pyonephrosis (principal); I50.23 Acute on chronic systolic (congestive) heart failure; I42.9 Cardiomyopathy, unspecified; Z16.23 Resistance to quinolones and fluoroquinolones; D68.69 Other thrombophilia; Q63.1 Lobulated, fused and horseshoe kidney; Z20.822 Contact with and (suspected) exposure to COVID-19; Z96.0 Presence of urogenital implants; R33.8 Other retention of urine; N40.1 Benign prostatic hyperplasia with lower urinary tract symptoms; N32.3 Diverticulum of bladder; N21.0 Calculus in bladder; I11.0 Hypertensive heart disease with heart failure; I48.91 Unspecified atrial fibrillation; F12.90 Cannabis use, unspecified, uncomplicated; B96.89 Other specified bacterial agents as the cause of diseases classified elsewhere; B96.1 Klebsiella pneumoniae [K. pneumoniae] as the cause of diseases classified elsewhere; Z95.0 Presence of cardiac pacemaker; Z91.19 Patient's noncompliance with other medical treatment and regimen; Z91.14 Patient's other noncompliance with medication regimen; Z87.442 Personal history of urinary calculi; Z79.82 Long term (current) use of aspirin; Z59.0 Homelessness
CPT/HCPCS: 36415; 71045; 74018; 74176; 80048; 80307; 81001; 82040; 82360; 83735; 84100; 85025; 87077; 87086; 87186; 87635; 88300; 88305; 93005; 96372; 96374; 99285; G0378; J0290; J0690; J0696; J1100; J2175; J2250; J2405; J2550; J2704; J2710; J3010; C1758; C1769; C2617; J0330; J0360; J1580; J2060; J7120

== ENCOUNTER 2021-05-07 22:34 | Inpatient (IN) | payer MEDICARE, MEDICAID ==
[~2021-05-07] VITALS: Ht 172.7 cm; Wt 64.4 kg
[~2021-05-07 22:34] MED LIST changes: +AMOX1TAB64 PO; +HYDR-2214 PO; +LACT1CAP35 PO; +LISI5TAB7 PO
--- NOTE | 2021-05-07 22:44 | NUR ---
PT REFUSING TO BE SWABBED FOR COVID PT IS UNVACCINATED. STATED "I DONT BELIEVE IN THAT SHIT"
--- NOTE | 2021-05-07 22:45 | NUR ---
PT PLACED ON SUPPLEMENTAL O2, PLACED IN WHEELCHAIR, TAKEN BACK TO WR AT THIS TIME. CAR REPAIRER TERESA AWARE PT WAS SLIGHTLY HYPOXIC AND TACHYPENIC IN TRAIGE. PT IS 1ST TO BE ROOMED.
[2021-05-07] MEDS ORDERED: ALBUTEROL/IPRATROPIUM 2.5MG/0.5MG, 3 ML ONE (23:22)
[2021-05-07] MEDS ORDERED: methylPREDNISolone SOD SUCC 125 MG/2 ML ONE (23:22)
[2021-05-07] MEDS ORDERED: SODIUM CHLORIDE 0.9% 1,000ML IVBOLUS ONE (23:30)
[2021-05-07] MEDS ORDERED: SODIUM CHLORIDE FLUSH 10ML SYR IVF ONE (23:30)
[2021-05-07] MEDS ORDERED: methylPREDNISolone SOD SUCC 125 MG/2 ML IV ONE (23:30)
[2021-05-07] MEDS ORDERED: ALBUTEROL/IPRATROPIUM 2.5MG/0.5MG, 3 ML NPPB SCH (23:30)
[2021-05-07] MEDS: PROPOFOL 100 ML IV PRN (23:40)
--- NOTE | 2021-05-07 23:57 | NUR ---
PATIENT BROUGHT TO TRAUMA 3 DUE TO DECLINING ABILITY TO BREATH SUSTAINBLY BY SELF. PATIENT TO BE INTUBATED BY DR. COLUNGA
[2021-05-08] MEDS ORDERED: MIDAZOLAM 1 MG/ML, 2ML IVPush ONE
[2021-05-08] MEDS ORDERED: ROCURONIUM 10 MG/ML,10ML IVPush ONE
[2021-05-08] MEDS ORDERED: ETOMIDATE 20 MG/10 ML IV ONE
--- NOTE | 2021-05-08 | NUR ---
Patient intubated. OG established. Pop established. Prop initiated.
[2021-05-08 00:09] LABS: BASOPHILS % (AUTO) 0 % (0-1); EOSINOPHILS % (AUTO) 0 % (1-7); LYMPHOCYTES % (AUTO) 16 % (22-44); MEAN CORPUSCULAR HEMOGLOBIN 30.7 pg (27.5-34.5); MEAN CORPUSCULAR HGB CONC 33.5 g/dL (33.2-36.2); MEAN PLATELET VOLUME 9.6 fL (7.4-10.4); MONOCYTES % (AUTO) 6 % (2-9); NEUTROPHILS % (AUTO) 78 % (42-75); PLATELET COUNT 239 x10^3/uL (130-400); RED BLOOD COUNT 5.38 x10^6/uL (4.38-5.82); RED CELL DISTRIBUTION WIDTH 13.9 % (9.4-14.8)
[2021-05-08 00:21] LABS: ALBUMIN 3.5 g/dL (3.4-5.0); ANION GAP 9 mmol/L (5-15); CHLORIDE 99 mmol/L (98-107); CREATININE 1.27 mg/dL (0.7-1.3)
[2021-05-08 00:25] LABS: TROPONIN I 0.029 ng/mL (0.000-0.045)
[2021-05-08] MEDS ORDERED: AZITHROMYCIN 500 MG in SODIUM CHLORIDE 0.9% 250 ML IVPB ONE (00:30)
[2021-05-08] MEDS ORDERED: CEFTRIAXONE 1,000 MG in DEXTROSE 5% 50 ML IVPB ONE (00:30)
[2021-05-08] MEDS ORDERED: LABETALOL 5MG/ML, 20ML ONE (00:40)
--- NOTE | 2021-05-08 00:57 | NUR ---
Per Will, ERP, ETT to be pulled out a few cm. Now at 23cm at the lip.
[2021-05-08] MEDS ORDERED: ROCURONIUM 10MG/ML,5ML ONE (01:00)
[2021-05-08] MEDS ORDERED: ONDANSETRON 2MG/ML, 2ML IVPush PRN (01:00)
[2021-05-08] MEDS ORDERED: hydrALAzine 20 MG/ML, 1ML IVPush PRN (01:00)
[2021-05-08] MEDS ORDERED: LABETALOL 5MG/ML, 20ML IVPush PRN (01:00)
[2021-05-08] MEDS ORDERED: LABETALOL 5MG/ML, 20ML IVPush ONE (01:00)
[2021-05-08] MEDS ORDERED: ETOMIDATE 20 MG/10 ML ONE (01:00)
[2021-05-08] MEDS ORDERED: MELATONIN 5 MG TABLET NG PRN (01:00)
[2021-05-08] MEDS ORDERED: ENOXAPARIN 40 MG/0.4 ML SQ SCH (01:00)
[2021-05-08] MEDS ORDERED: MIDAZOLAM 1 MG/ML, 2ML ONE (01:00)
[2021-05-08] MEDS ORDERED: DEXTROSE 50%, 50ML SYRINGE IVPush PRN (01:00)
[2021-05-08] MEDS ORDERED: DEXTROSE 4 GM TAB.CHEW PO PRN (01:00)
[2021-05-08] MEDS ORDERED: GLUCAGON 1 MG IM PRN (01:00)
[2021-05-08] MEDS ORDERED: FUROSEMIDE 40 MG/4 ML IV ONE (01:00)
[2021-05-08] MEDS ORDERED: PROPOFOL 10 MG/ML, 100ML IV ONE (01:00)
[2021-05-08] MEDS ORDERED: POLYETHYLENE GLYCOL 17 GM PACKET PO PRN (01:00)
[2021-05-08] MEDS ORDERED: FUROSEMIDE 40 MG/4 ML ONE (01:06)
[2021-05-08] MEDS ORDERED: ENOXAPARIN 40 MG/0.4 ML ONE (01:06)
[2021-05-08] MEDS ORDERED: FENTANYL PF 100 MCG/2ML ONE (01:14)
[2021-05-08] MEDS ORDERED: FENTANYL PF 100 MCG/2ML IVPush ONE (01:30)
[2021-05-08] MEDS ORDERED: ACETAMINOPHEN 650 MG SUPP ONE (01:32)
[2021-05-08] MEDS ORDERED: ACETAMINOPHEN 650 MG SUPP PR ONE ×2 (02:00)
[2021-05-08] MEDS: INSULIN LISPRO 100 UNITS/ML, PEN SQ-INSULIN SCH ×5 (02:22→20:15)
[2021-05-08 04:20] LABS: BASOPHILS % (AUTO) 0 % (0-1); EOSINOPHILS % (AUTO) 0 % (1-7); LYMPHOCYTES % (AUTO) 2 % (22-44); MEAN CORPUSCULAR HEMOGLOBIN 30.2 pg (27.5-34.5); MEAN CORPUSCULAR HGB CONC 32.9 g/dL (33.2-36.2); MONOCYTES % (AUTO) 4 % (2-9); NEUTROPHILS % (AUTO) 94 % (42-75); PLATELET COUNT 244 x10^3/uL (130-400); RED BLOOD COUNT 5.51 x10^6/uL (4.38-5.82); RED CELL DISTRIBUTION WIDTH 13.8 % (9.4-14.8)
[2021-05-08 04:31] LABS: ANION GAP 5 mmol/L (5-15); CALCIUM 8.3 mg/dL (8.5-10.1); CHLORIDE 104 mmol/L (98-107); CREATININE 1.54 mg/dL (0.7-1.3)
[2021-05-08 04:45] LABS: TROPONIN I 0.138 ng/mL (0.000-0.045)
--- NOTE | 2021-05-08 04:47 | NUR ---
Report given to VERONICA Marquez. Patient to be transferred to room 558.
[2021-05-08] MEDS: PROPOFOL 100 ML IV PRN ×4 (05:18→22:47)
[2021-05-08] MEDS ORDERED: PHARMACY MAY ADJ FOR RENAL FX MC SCH (05:30)
[2021-05-08] MEDS ORDERED: LIDOCAINE-MPF 1%, 2ML ENDO PRN (05:30)
[2021-05-08] MEDS ORDERED: FENTANYL PF 100 MCG/2ML IVPush PRN (05:30)
[2021-05-08 07:07] LABS: AMPHETAMINE SCREEN, URINE Positive (Negative); BARBITURATE SCREEN, URINE Negative (Negative); BENZODIAZEPINE SCREEN, URINE Negative (Negative); CANNABINOID SCREEN, URINE Positive (Negative); COCAINE SCREEN, URINE Negative (Negative); METHADONE SCREEN, URINE Negative (Negative); OPIATE SCREEN, URINE Negative (Negative)
[2021-05-08] MEDS: FAMOTIDINE 20 MG/2 ML IVPush SCH ×2 (07:55→20:00)
[2021-05-08] MEDS: SODIUM CHLORIDE FLUSH 10ML SYR IVF SCH ×2 (07:56→20:00)
[2021-05-08 08:21] LABS: C-REACTIVE PROTEIN, QUANT 3.1 mg/dL (0.02-0.49)
[2021-05-08] MEDS ORDERED: FUROSEMIDE 40 MG/4 ML IV SCH (09:00)
[2021-05-08] MEDS: ALBUTEROL/IPRATROPIUM 2.5MG/0.5MG, 3 ML INLINE SCH ×3 (09:00→18:47)
[2021-05-08 10:37] LABS: CHOLESTEROL, TOTAL 166 mg/dL (140-239); TRIGLYCERIDES 53 mg/dL (50-200); VLDL CHOLESTEROL 11 mg/dL (0-25)
[2021-05-08 10:40] LABS: CHOL/HDL RATIO 3.7; HDL CHOL % 27 % (26-37); HDL CHOLESTEROL (DIRECT) 45 mg/dL (40-60); LDL CHOLESTEROL,CALCULATED 110 mg/dL (54-169); LDL/HDL RATIO 2.4 (0.5-3.0); TROPONIN I 0.266 ng/mL (0.000-0.045)
--- NOTE | 2021-05-08 11:29 | NUR ---
TF recs if needed: Promote w/ end goal rate of 60 mL/hr (ON propofol); 70 mL/hr (OFF propofol). Addendum: 05/08/21 at [address] Amended: Links added.
[2021-05-08] MEDS: CEFTRIAXONE 2 GM in DEXTROSE 5% 50 ML IVPB SCH (12:22)
[2021-05-08] MEDS: ASPIRIN 81 MG TABLET CHEW PO SCH (12:23)
[2021-05-08] MEDS: methylPREDNISolone SOD SUCC 125 MG/2 ML IVPush SCH ×3 (12:23→20:02)
[2021-05-08] MEDS: ENOXAPARIN 60 MG/0.6 ML SQ SCH (12:30)
[2021-05-08 16:36] LABS: MICROSCOPIC INDICATED
[2021-05-08 17:10] LABS: ALBUMIN 2.7 g/dL (3.4-5.0); BILIRUBIN, DIRECT 0.3 mg/dL (0.1-0.2)
[2021-05-08 17:25] LABS: BILIRUBIN,INDIRECT 0.5 mg/dL (0.0-2.0); BILIRUBIN,TOTAL 0.8 mg/dL (0.2-1.0); TOTAL PROTEIN 6.6 g/dL (6.4-8.2)
[2021-05-08] MEDS: ASCORBIC ACID 500 MG TABLET PO SCH (17:57)
[2021-05-08] MEDS ORDERED: REMDESIVIR 200 MG in SODIUM CHLORIDE 0.9% 100 ML IVPB ONE (18:00)
[2021-05-08 18:09] LABS: TROPONIN I 0.144 ng/mL (0.000-0.045)
[2021-05-08] MEDS: THIAMINE 100MG TABLET PO SCH (20:01)
[2021-05-08] MEDS: MELATONIN 5 MG TABLET NG SCH (20:01)
[2021-05-09] MEDS: ENOXAPARIN 60 MG/0.6 ML SQ SCH ×2 (01:16→12:52)
[2021-05-09] MEDS: ALBUTEROL/IPRATROPIUM 2.5MG/0.5MG, 3 ML INLINE SCH ×4 (01:47→19:45)
[2021-05-09] MEDS: methylPREDNISolone SOD SUCC 125 MG/2 ML IVPush SCH ×4 (02:12→20:09)
[2021-05-09 05:10] LABS: BASOPHILS % (AUTO) 0 % (0-1); EOSINOPHILS % (AUTO) 0 % (1-7); LYMPHOCYTES % (AUTO) 5 % (22-44); MEAN CORPUSCULAR HEMOGLOBIN 30.2 pg (27.5-34.5); MEAN CORPUSCULAR HGB CONC 33.5 g/dL (33.2-36.2); MEAN PLATELET VOLUME 9.8 fL (7.4-10.4); MONOCYTES % (AUTO) 3 % (2-9); NEUTROPHILS % (AUTO) 93 % (42-75); PLATELET COUNT 201 x10^3/uL (130-400); RED BLOOD COUNT 4.77 x10^6/uL (4.38-5.82); RED CELL DISTRIBUTION WIDTH 14.2 % (9.4-14.8)
[2021-05-09 05:22] LABS: ALBUMIN 2.3 g/dL (3.4-5.0); ANION GAP 8 mmol/L (5-15); CALCIUM 8.1 mg/dL (8.5-10.1); CHLORIDE 105 mmol/L (98-107)
[2021-05-09 05:25] LABS: ALANINE AMINOTRANSFERASE 39 U/L (12-78); ALKALINE PHOSPHATASE 80 U/L (45-117); BILIRUBIN,TOTAL 0.4 mg/dL (0.2-1.0); TOTAL PROTEIN 6.2 g/dL (6.4-8.2)
[2021-05-09] MEDS: INSULIN LISPRO 100 UNITS/ML, PEN SQ-INSULIN SCH ×4 (06:33→19:50)
[2021-05-09] MEDS: ASCORBIC ACID 500 MG TABLET PO SCH ×2 (08:27→16:20)
[2021-05-09] MEDS: FAMOTIDINE 20 MG/2 ML IVPush SCH ×2 (08:27→20:09)
[2021-05-09] MEDS: FUROSEMIDE 40 MG/4 ML IV SCH (08:27)
[2021-05-09] MEDS: ZINC SULFATE 220 MG CAPSULE PO SCH (08:27)
[2021-05-09] MEDS: ASPIRIN 81 MG TABLET CHEW PO SCH (08:27)
[2021-05-09] MEDS: CHOLECALCIFEROL 1,000 UNIT TABLET PO SCH (08:28)
[2021-05-09] MEDS: THIAMINE 100MG TABLET PO SCH ×2 (08:28→21:00)
[2021-05-09] MEDS: CEFTRIAXONE 2 GM in DEXTROSE 5% 50 ML IVPB SCH (09:07)
[2021-05-09] MEDS: SODIUM CHLORIDE FLUSH 10ML SYR IVF SCH ×2 (09:07→20:09)
[2021-05-09] MEDS: AZITHROMYCIN 500 MG in SODIUM CHLORIDE 0.9% 250 ML IV SCH (09:08)
--- NOTE | 2021-05-09 11:13 | NUR ---
TF per RD recs: Promote w/ end goal rate of 60 mL/hr (ON propofol); 70 mL/hr (OFF propofol). Addendum: 05/09/21 at [address] Amended: Links added.
[2021-05-09] MEDS: LISINOPRIL 5 MG TABLET PO SCH (12:51)
[2021-05-09] MEDS: PROPOFOL 100 ML IV PRN (12:52)
[2021-05-09] MEDS: REMDESIVIR 100 MG in SODIUM CHLORIDE 0.9% 100 ML IVPB SCH (18:34)
[2021-05-09] MEDS: MELATONIN 5 MG TABLET NG SCH (20:09)
[2021-05-09] MEDS: ATORVASTATIN 40 MG TABLET PO SCH (20:10)
[2021-05-10] MEDS: PROPOFOL 100 ML IV PRN ×5 (01:12→21:07)
[2021-05-10] MEDS: ENOXAPARIN 60 MG/0.6 ML SQ SCH ×2 (01:12→12:52)
[2021-05-10] MEDS: ALBUTEROL/IPRATROPIUM 2.5MG/0.5MG, 3 ML INLINE SCH ×4 (01:30→21:00)
[2021-05-10] MEDS: methylPREDNISolone SOD SUCC 125 MG/2 ML IVPush SCH ×2 (03:57→10:37)
[2021-05-10 05:13] LABS: ALBUMIN 2.2 g/dL (3.4-5.0); ANION GAP 7 mmol/L (5-15); CHLORIDE 103 mmol/L (98-107)
[2021-05-10 05:18] LABS: ALANINE AMINOTRANSFERASE 44 U/L (12-78); ALKALINE PHOSPHATASE 70 U/L (45-117); BILIRUBIN,TOTAL 0.5 mg/dL (0.2-1.0); CREATININE 1.11 mg/dL (0.7-1.3); TOTAL PROTEIN 6.2 g/dL (6.4-8.2)
[2021-05-10 05:43] LABS: BASOPHILS % (AUTO) 0 % (0-1); EOSINOPHILS % (AUTO) 0 % (1-7); LYMPHOCYTES % (AUTO) 4 % (22-44); MEAN CORPUSCULAR HEMOGLOBIN 30.1 pg (27.5-34.5); MEAN CORPUSCULAR HGB CONC 33.5 g/dL (33.2-36.2); MEAN PLATELET VOLUME 10.2 fL (7.4-10.4); MONOCYTES % (AUTO) 3 % (2-9); NEUTROPHILS % (AUTO) 94 % (42-75); PLATELET COUNT 179 x10^3/uL (130-400); RED BLOOD COUNT 4.82 x10^6/uL (4.38-5.82); RED CELL DISTRIBUTION WIDTH 14.1 % (9.4-14.8)
[2021-05-10] MEDS: INSULIN LISPRO 100 UNITS/ML, PEN SQ-INSULIN SCH ×4 (07:34→21:41)
[2021-05-10] MEDS: CEFTRIAXONE 2 GM in DEXTROSE 5% 50 ML IVPB SCH (10:33)
[2021-05-10] MEDS: FAMOTIDINE 20 MG/2 ML IVPush SCH ×2 (10:35→21:00)
[2021-05-10] MEDS: ASPIRIN 81 MG TABLET CHEW PO SCH (10:36)
[2021-05-10] MEDS: ZINC SULFATE 220 MG CAPSULE PO SCH (10:36)
[2021-05-10] MEDS: ASCORBIC ACID 500 MG TABLET PO SCH ×2 (10:36→16:13)
[2021-05-10] MEDS: SODIUM CHLORIDE FLUSH 10ML SYR IVF SCH ×2 (10:36→21:00)
[2021-05-10] MEDS: LISINOPRIL 5 MG TABLET PO SCH (10:37)
[2021-05-10] MEDS: QUETIAPINE 25MG TABLET PO SCH ×3 (10:38→21:02)
[2021-05-10] MEDS: CHOLECALCIFEROL 1,000 UNIT TABLET PO SCH (10:38)
[2021-05-10] MEDS: AZITHROMYCIN 500 MG in SODIUM CHLORIDE 0.9% 250 ML IV SCH (11:15)
[2021-05-10] MEDS: THIAMINE 100MG TABLET PO SCH ×2 (11:16→21:02)
[2021-05-10] MEDS: FUROSEMIDE 40 MG/4 ML IV SCH (11:16)
[2021-05-10] MEDS: REMDESIVIR 100 MG in SODIUM CHLORIDE 0.9% 100 ML IVPB SCH (17:31)
[2021-05-10] MEDS: methylPREDNISolone SOD SUCC 40 MG/ML IVPush SCH (21:00)
[2021-05-10] MEDS: ATORVASTATIN 40 MG TABLET PO SCH (21:02)
[2021-05-10] MEDS: MELATONIN 5 MG TABLET NG SCH (21:02)
[2021-05-11] MEDS: ENOXAPARIN 60 MG/0.6 ML SQ SCH ×2 (01:33→12:51)
[2021-05-11] MEDS: PROPOFOL 100 ML IV PRN ×4 (01:34→20:29)
[2021-05-11] MEDS: ALBUTEROL/IPRATROPIUM 2.5MG/0.5MG, 3 ML INLINE SCH ×4 (03:00→19:10)
[2021-05-11 05:06] LABS: BASOPHILS % (AUTO) 0 % (0-1); EOSINOPHILS % (AUTO) 0 % (1-7); LYMPHOCYTES % (AUTO) 2 % (22-44); MEAN CORPUSCULAR HEMOGLOBIN 30.1 pg (27.5-34.5); MEAN CORPUSCULAR HGB CONC 33.3 g/dL (33.2-36.2); MEAN PLATELET VOLUME 10.2 fL (7.4-10.4); MONOCYTES % (AUTO) 4 % (2-9); NEUTROPHILS % (AUTO) 94 % (42-75); PLATELET COUNT 195 x10^3/uL (130-400); RED CELL DISTRIBUTION WIDTH 13.9 % (9.4-14.8)
[2021-05-11 05:15] LABS: CHLORIDE 105 mmol/L (98-107)
[2021-05-11 05:31] LABS: ALANINE AMINOTRANSFERASE 80 U/L (12-78); ALBUMIN 2.5 g/dL (3.4-5.0); ALKALINE PHOSPHATASE 69 U/L (45-117); ANION GAP 6 mmol/L (5-15); BILIRUBIN,TOTAL 0.5 mg/dL (0.2-1.0); CREATININE 1.04 mg/dL (0.7-1.3); TOTAL PROTEIN 6.1 g/dL (6.4-8.2); TRIGLYCERIDES 165 mg/dL (50-200)
[2021-05-11] MEDS: INSULIN LISPRO 100 UNITS/ML, PEN SQ-INSULIN SCH ×4 (07:43→21:19)
[2021-05-11] MEDS: ASCORBIC ACID 500 MG TABLET PO SCH ×2 (08:59→17:49)
[2021-05-11] MEDS: CHOLECALCIFEROL 1,000 UNIT TABLET PO SCH (09:00)
[2021-05-11] MEDS: QUETIAPINE 25MG TABLET PO SCH ×3 (09:00→21:18)
[2021-05-11] MEDS: ASPIRIN 81 MG TABLET CHEW PO SCH (09:00)
[2021-05-11] MEDS: methylPREDNISolone SOD SUCC 40 MG/ML IVPush SCH ×2 (09:00→21:18)
[2021-05-11] MEDS: LISINOPRIL 5 MG TABLET PO SCH (09:00)
[2021-05-11] MEDS: THIAMINE 100MG TABLET PO SCH ×2 (09:00→21:18)
[2021-05-11] MEDS: FAMOTIDINE 20 MG/2 ML IVPush SCH ×2 (09:01→21:18)
[2021-05-11] MEDS: ZINC SULFATE 220 MG CAPSULE PO SCH (09:01)
[2021-05-11] MEDS: FUROSEMIDE 40 MG/4 ML IV SCH (09:01)
[2021-05-11] MEDS: CEFTRIAXONE 2 GM in DEXTROSE 5% 50 ML IVPB SCH (09:01)
[2021-05-11] MEDS: SODIUM CHLORIDE FLUSH 10ML SYR IVF SCH ×2 (09:01→21:18)
[2021-05-11] MEDS: AZITHROMYCIN 500 MG in SODIUM CHLORIDE 0.9% 250 ML IV SCH (09:50)
[2021-05-11] MEDS: REMDESIVIR 100 MG in SODIUM CHLORIDE 0.9% 100 ML IVPB SCH (17:49)
[2021-05-11] MEDS: MELATONIN 5 MG TABLET NG SCH (21:18)
[2021-05-11] MEDS: ATORVASTATIN 40 MG TABLET PO SCH (21:18)
[2021-05-12] MEDS: ENOXAPARIN 60 MG/0.6 ML SQ SCH ×2 (00:41→12:58)
[2021-05-12] MEDS: ALBUTEROL/IPRATROPIUM 2.5MG/0.5MG, 3 ML INLINE SCH ×3 (02:30→15:00)
[2021-05-12] MEDS: PROPOFOL 100 ML IV PRN ×2 (04:09→08:24)
[2021-05-12 04:51] LABS: BASOPHILS % (AUTO) 0 % (0-1); EOSINOPHILS % (AUTO) 0 % (1-7); LYMPHOCYTES % (AUTO) 7 % (22-44); MEAN CORPUSCULAR HEMOGLOBIN 30.1 pg (27.5-34.5); MEAN CORPUSCULAR HGB CONC 33.2 g/dL (33.2-36.2); MEAN PLATELET VOLUME 10.5 fL (7.4-10.4); MONOCYTES % (AUTO) 8 % (2-9); NEUTROPHILS % (AUTO) 85 % (42-75); PLATELET COUNT 174 x10^3/uL (130-400); RED BLOOD COUNT 4.85 x10^6/uL (4.38-5.82); RED CELL DISTRIBUTION WIDTH 13.9 % (9.4-14.8)
[2021-05-12 04:53] LABS: ALBUMIN 2.4 g/dL (3.4-5.0); ANION GAP 3 mmol/L (5-15); CALCIUM 8.3 mg/dL (8.5-10.1); CHLORIDE 106 mmol/L (98-107)
[2021-05-12 04:56] LABS: ALANINE AMINOTRANSFERASE 119 U/L (12-78); ALKALINE PHOSPHATASE 73 U/L (45-117); BILIRUBIN,TOTAL 0.4 mg/dL (0.2-1.0); CREATININE 0.74 mg/dL (0.7-1.3); TOTAL PROTEIN 6.2 g/dL (6.4-8.2)
[2021-05-12] MEDS: ASPIRIN 81 MG TABLET CHEW PO SCH (08:02)
[2021-05-12] MEDS: CEFTRIAXONE 2 GM in DEXTROSE 5% 50 ML IVPB SCH (08:02)
[2021-05-12] MEDS: LISINOPRIL 5 MG TABLET PO SCH (08:02)
[2021-05-12] MEDS: THIAMINE 100MG TABLET PO SCH ×2 (08:02→20:18)
[2021-05-12] MEDS: CHOLECALCIFEROL 1,000 UNIT TABLET PO SCH (08:03)
[2021-05-12] MEDS: QUETIAPINE 25MG TABLET PO SCH ×3 (08:03→20:18)
[2021-05-12] MEDS: ASCORBIC ACID 500 MG TABLET PO SCH ×2 (08:03→16:24)
[2021-05-12] MEDS: methylPREDNISolone SOD SUCC 40 MG/ML IVPush SCH (08:04)
[2021-05-12] MEDS: FAMOTIDINE 20 MG/2 ML IVPush SCH ×2 (08:04→20:18)
[2021-05-12] MEDS: INSULIN LISPRO 100 UNITS/ML, PEN SQ-INSULIN SCH ×3 (08:04→20:21)
[2021-05-12] MEDS: ZINC SULFATE 220 MG CAPSULE PO SCH (08:04)
[2021-05-12] MEDS: SODIUM CHLORIDE FLUSH 10ML SYR IVF SCH ×2 (08:04→20:19)
[2021-05-12] MEDS: FUROSEMIDE 40 MG/4 ML IV SCH (08:04)
[2021-05-12] MEDS ORDERED: DEXMEDETOMIDINE 400 MCG in SODIUM CHLORIDE 0.9% 96 ML IV PRN (09:00)
[2021-05-12] MEDS: AZITHROMYCIN 500 MG in SODIUM CHLORIDE 0.9% 250 ML IV SCH (10:23)
[2021-05-12] MEDS ORDERED: ZIPRASIDONE 20 MG INJ IM ONE ×2 (15:25→15:30)
[2021-05-12] MEDS ORDERED: ALBUTEROL/IPRATROPIUM 2.5MG/0.5MG, 3 ML NEB PRN (15:30)
[2021-05-12] MEDS: REMDESIVIR 100 MG in SODIUM CHLORIDE 0.9% 100 ML IVPB SCH (16:39)
[2021-05-12] MEDS: MELATONIN 5 MG TABLET NG SCH (20:18)
[2021-05-13] MEDS: ENOXAPARIN 60 MG/0.6 ML SQ SCH ×2 (01:19→12:10)
[2021-05-13] MEDS: INSULIN LISPRO 100 UNITS/ML, PEN SQ-INSULIN SCH ×5 (03:00→20:08)
[2021-05-13 05:00] LABS: BASOPHILS % (AUTO) 0 % (0-1); EOSINOPHILS % (AUTO) 0 % (1-7); LYMPHOCYTES % (AUTO) 19 % (22-44); MEAN CORPUSCULAR HEMOGLOBIN 30.3 pg (27.5-34.5); MEAN CORPUSCULAR HGB CONC 33.9 g/dL (33.2-36.2); MEAN PLATELET VOLUME 10.2 fL (7.4-10.4); MONOCYTES % (AUTO) 11 % (2-9); NEUTROPHILS % (AUTO) 70 % (42-75); PLATELET COUNT 180 x10^3/uL (130-400); RED BLOOD COUNT 5.45 x10^6/uL (4.38-5.82); RED CELL DISTRIBUTION WIDTH 13.6 % (9.4-14.8)
[2021-05-13 05:08] LABS: ALANINE AMINOTRANSFERASE 106 U/L (12-78); ALBUMIN 2.6 g/dL (3.4-5.0); ANION GAP 2 mmol/L (5-15); BILIRUBIN, DIRECT 0.2 mg/dL (0.1-0.2); CALCIUM 8.8 mg/dL (8.5-10.1); CHLORIDE 106 mmol/L (98-107); CREATININE 0.68 mg/dL (0.7-1.3)
[2021-05-13 05:10] LABS: ALKALINE PHOSPHATASE 77 U/L (45-117); BILIRUBIN,INDIRECT 0.3 mg/dL (0.0-2.0); BILIRUBIN,TOTAL 0.5 mg/dL (0.2-1.0); TOTAL PROTEIN 6.7 g/dL (6.4-8.2)
[2021-05-13] MEDS ORDERED: methylPREDNISolone SOD SUCC 40 MG/ML IVPush SCH (09:00)
[2021-05-13] MEDS: THIAMINE 100MG TABLET PO SCH ×2 (09:00→20:09)
[2021-05-13] MEDS: ASCORBIC ACID 500 MG TABLET PO SCH ×2 (09:02→16:56)
[2021-05-13] MEDS: ASPIRIN 81 MG TABLET CHEW PO SCH (09:02)
[2021-05-13] MEDS: POTASSIUM CHLORIDE 20 MEQ TAB.ER.PRT PO SCH (09:03)
[2021-05-13] MEDS: LISINOPRIL 10 MG TABLET PO SCH ×2 (09:03→20:09)
[2021-05-13] MEDS: QUETIAPINE 25MG TABLET PO SCH ×3 (09:04→20:09)
[2021-05-13] MEDS: ZINC SULFATE 220 MG CAPSULE PO SCH (09:04)
[2021-05-13] MEDS: CHOLECALCIFEROL 1,000 UNIT TABLET PO SCH (09:04)
[2021-05-13] MEDS: FAMOTIDINE 20 MG/2 ML IVPush SCH ×2 (09:05→20:08)
[2021-05-13] MEDS: SODIUM CHLORIDE FLUSH 10ML SYR IVF SCH ×2 (09:05→20:09)
[2021-05-13] MEDS: FUROSEMIDE 40 MG/4 ML IV SCH (09:05)
[2021-05-13] MEDS: CEFTRIAXONE 2 GM in DEXTROSE 5% 50 ML IVPB SCH (10:07)
[2021-05-13 12:16] VITALS: BP 142/91
[2021-05-13] MEDS: AZITHROMYCIN 500 MG in SODIUM CHLORIDE 0.9% 250 ML IV SCH (13:26)
[2021-05-13] MEDS: TAMSULOSIN 0.4 MG CAP.ER.24H PO SCH (13:27)
[2021-05-13] MEDS: FINASTERIDE 5 MG TABLET PO SCH (16:56)
[2021-05-13] MEDS: MELATONIN 5 MG TABLET NG SCH (20:09)
[2021-05-13 20:43] VITALS: BP 109/68
[2021-05-14 00:33] VITALS: BP 115/76
[2021-05-14] MEDS: ENOXAPARIN 60 MG/0.6 ML SQ SCH ×2 (01:12→12:42)
[2021-05-14] MEDS ORDERED: OMNIPAQUE 350 MG/ML, 100ML BOTTLE ONE (06:16)
[2021-05-14] MEDS: INSULIN LISPRO 100 UNITS/ML, PEN SQ-INSULIN SCH ×4 (07:00→21:10)
[2021-05-14] MEDS: POTASSIUM CHLORIDE 20 MEQ TAB.ER.PRT PO SCH (08:01)
[2021-05-14] MEDS: ASCORBIC ACID 500 MG TABLET PO SCH ×2 (08:01→17:08)
[2021-05-14 08:05] LABS: ANION GAP 8 mmol/L (5-15); CALCIUM 8.4 mg/dL (8.5-10.1); CHLORIDE 96 mmol/L (98-107)
[2021-05-14 08:06] LABS: CREATININE 0.81 mg/dL (0.7-1.3)
[2021-05-14] MEDS: CHOLECALCIFEROL 1,000 UNIT TABLET PO SCH (09:00)
[2021-05-14] MEDS: THIAMINE 100MG TABLET PO SCH ×2 (09:00→21:09)
[2021-05-14] MEDS: FAMOTIDINE 20 MG/2 ML IVPush SCH ×2 (12:36→21:09)
[2021-05-14] MEDS: FUROSEMIDE 40 MG/4 ML IV SCH (12:36)
[2021-05-14] MEDS: SODIUM CHLORIDE FLUSH 10ML SYR IVF SCH ×2 (12:36→21:10)
[2021-05-14] MEDS: TAMSULOSIN 0.4 MG CAP.ER.24H PO SCH (12:37)
[2021-05-14] MEDS: FINASTERIDE 5 MG TABLET PO SCH (12:37)
[2021-05-14] MEDS: ZINC SULFATE 220 MG CAPSULE PO SCH (12:37)
[2021-05-14] MEDS: ASPIRIN 81 MG TABLET CHEW PO SCH (12:37)
[2021-05-14] MEDS: QUETIAPINE 25MG TABLET PO SCH ×2 (12:40→17:08)
[2021-05-14] MEDS: AZITHROMYCIN 500 MG in SODIUM CHLORIDE 0.9% 250 ML IV SCH (12:41)
[2021-05-14] MEDS: CEFTRIAXONE 2 GM in DEXTROSE 5% 50 ML IVPB SCH (12:41)
[2021-05-14] MEDS: LISINOPRIL 10 MG TABLET PO SCH ×2 (12:41→21:09)
[2021-05-14 18:53] VITALS: BP 98/52
[2021-05-14] MEDS: MELATONIN 5 MG TABLET NG SCH (21:10)
[2021-05-15 00:20] VITALS: BP 112/69
[2021-05-15] MEDS: ENOXAPARIN 60 MG/0.6 ML SQ SCH ×2 (00:38→13:00)
[2021-05-15] MEDS: INSULIN LISPRO 100 UNITS/ML, PEN SQ-INSULIN SCH ×2 (07:00→11:00)
[2021-05-15] MEDS ORDERED: ASPI-963 PO (07:06)
[2021-05-15 07:46] VITALS: BP 142/78
[2021-05-15] MEDS: ASCORBIC ACID 500 MG TABLET PO SCH (08:41)
[2021-05-15] MEDS: POTASSIUM CHLORIDE 20 MEQ TAB.ER.PRT PO SCH (08:41)
[2021-05-15] MEDS ORDERED: SPIR25TA5 PO (08:48)
[2021-05-15] MEDS: CHOLECALCIFEROL 1,000 UNIT TABLET PO SCH (09:00)
[2021-05-15] MEDS: FUROSEMIDE 40 MG/4 ML IV SCH (10:37)
[2021-05-15] MEDS: LISINOPRIL 10 MG TABLET PO SCH (10:38)
[2021-05-15] MEDS: ZINC SULFATE 220 MG CAPSULE PO SCH (10:38)
[2021-05-15] MEDS: THIAMINE 100MG TABLET PO SCH (10:38)
[2021-05-15] MEDS: FINASTERIDE 5 MG TABLET PO SCH (10:38)
[2021-05-15] MEDS: FAMOTIDINE 20 MG/2 ML IVPush SCH (10:38)
[2021-05-15] MEDS: TAMSULOSIN 0.4 MG CAP.ER.24H PO SCH (10:38)
[2021-05-15] MEDS: ASPIRIN 81 MG TABLET CHEW PO SCH (10:38)
[2021-05-15] MEDS: SODIUM CHLORIDE FLUSH 10ML SYR IVF SCH (10:39)
[2021-05-15 12:36] VITALS: BP 96/60
[2021-05-15] MEDS ORDERED: FAMOTIDINE 20 MG TABLET PO SCH (21:00)
== END 2021-05-15 16:40 | disposition home or self-care (01) | DRG 871 ==
LOC: ED 05-08 00:24 → EDIP 05-08 00:38 → CCU 05-08 05:08 → 3N 05-13 10:52
PROVIDERS: ADMIT Internal Medicine; ATTEND Internal Medicine
PROC: 0BH17EZ Insertion of Endotracheal Airway into Trachea, Via Natural or Artificial Opening (ICD-10-PCS; 2021-05-07)
PROC: 5A1945Z Respiratory Ventilation, 24-96 Consecutive Hours (ICD-10-PCS; 2021-05-07)
PROC: 0T9B30Z Drainage of Bladder with Drainage Device, Percutaneous Approach (ICD-10-PCS; 2021-05-08)
PROC: XW033E5 Introduction of Remdesivir Anti-infective into Peripheral Vein, Percutaneous Approach, New Technology Group 5 (ICD-10-PCS; 2021-05-08)
PROC: 5A1945Z Respiratory Ventilation, 24-96 Consecutive Hours (ICD-10-PCS; principal; 2021-05-10)
DX: A41.89 Other specified sepsis (principal); J96.01 Acute respiratory failure with hypoxia; J15.9 Unspecified bacterial pneumonia; U07.1 COVID-19; I21.A1 Myocardial infarction type 2; J96.02 Acute respiratory failure with hypercapnia; J12.82 Pneumonia due to coronavirus disease 2019; I50.23 Acute on chronic systolic (congestive) heart failure; I48.20 Chronic atrial fibrillation, unspecified; N17.9 Acute kidney failure, unspecified; E87.2 Acidosis; N13.8 Other obstructive and reflux uropathy; J44.1 Chronic obstructive pulmonary disease with (acute) exacerbation; J44.0 Chronic obstructive pulmonary disease with (acute) lower respiratory infection; I13.0 Hypertensive heart and chronic kidney disease with heart failure and stage 1 through stage 4 chronic kidney disease, or unspecified chronic kidney disease; I42.9 Cardiomyopathy, unspecified; G93.40 Encephalopathy, unspecified; D68.69 Other thrombophilia; T38.0X5A Adverse effect of glucocorticoids and synthetic analogues, initial encounter; F12.90 Cannabis use, unspecified, uncomplicated; F17.200 Nicotine dependence, unspecified, uncomplicated; N18.9 Chronic kidney disease, unspecified; N40.1 Benign prostatic hyperplasia with lower urinary tract symptoms; Z95.0 Presence of cardiac pacemaker; Q63.1 Lobulated, fused and horseshoe kidney; Z90.79 Acquired absence of other genital organ(s); Z59.0 Homelessness; Z79.899 Other long term (current) drug therapy; Z91.19 Patient's noncompliance with other medical treatment and regimen; Y92.89 Other specified places as the place of occurrence of the external cause; Z91.14 Patient's other noncompliance with medication regimen
CPT/HCPCS: 31500; 36415; 36600; 71045; 71275; 80048; 80053; 80061; 80074; 80076; 80307; 81001; 82040; 82803; 82962; 83605; 83615; 83735; 83880; 84100; 84145; 84443; 84478; 84484; 85025; 85379; 86140; 87040; 87070; 87081; 87086; 87205; 87521; 92950; 93005; 94002; 94003; 94640; 96374; 96375; G0378; J0456; J0696; J1650; J1940; J2250; J2704; J3010; J3486; Q9967; U0005; J1815; J2920; J2930; J7030; J7050; U0003